=== PATIENT | female | born 1945 | race Caucasian/White ===

== ENCOUNTER 2016-07-20 10:52 | Inpatient (IN) | payer OTHER, MEDICARE ==
[~2016-07-20] VITALS: Ht 170.2 cm; Wt 112.9 kg
[~2016-07-20 10:52] MED LIST: ATIVAN0.5 MG PO; BACTRIM DS TAB1 EACH PO; CARDIZEM CD120 M2 PO; CEPHALEXIN500 M3 PO; CIPROFLOXACIN500 M2 PO; COUMADIN5 M2 PO; DILAUDID2 M1 PO; DILAUDID2 MG PO; DILAUDID8 M1 PO; DILTIAZEM180 MG; FENTANYL1 EAC2 TOP; FERRETTS106 MG PO; FERROUS SULFAT325 M1 PO; HYDROMORPHONE HC4 M1 PO; LASIX20 M1 PO; LASIX40 M1 PO; LEVOTHYROXIN0.075 MG PO; LORAZEPAM0.5 M1 PO; METOPROLOL SUC100 M2 PO; MORPHINE SU4 MG/1 M2 SC; PANTOPRAZOLE SO40 M1 PO; PERCOCET 325 MG1 TA2 PO; PRAVACHOL80 MG; PRAVASTATIN SOD20 M2 PO; PREVACID 30MG30 MG; PROTONIX 40MG T40 MG PO; SYNTHROID0.025 MG; SYNTHROID175 MCG PO; XARELTO15 MG PO
--- NOTE | 2016-07-20 10:57 | NUR ---
PER PT SENT BY DR. DUPREE FOR ADMISSION FOR CELLULITIS. WAS AT [facility] PAIN INTENSE
--- NOTE | 2016-07-20 11:19 | NUR ---
DR. GOMEZ APPROACHED BY THIS RN RE:BLOOD CULTURES D/T WAITTIMES, PER DR GOMEZ CULTURES NOT NECESSARY.
[2016-07-20 11:43] LABS: ABSOLUTE BASOPHIL COUNT 0 /CUMM (0.0-0.2); ABSOLUTE EOSINOPHIL COUNT 0.1 /CUMM (0.0-0.7); ABSOLUTE GRANULOCYTE CT 9.3 /CUMM (1.4-6.5); ABSOLUTE LYMPH COUNT 0.4 /CUMM (1.2-3.4); ABSOLUTE MONOCYTE COUNT 0.1 /CUMM (0.10-0.60); BASOPHIL % 0 % (0.0-2.0); EOSINOPHIL % 0.7 % (0-5); GRANULOCYTE % 94.9 % (42.2-75.2); HEMATOCRIT 45.5 % (37-47); MEAN CORPUSCULAR HGB 29.2 PG (27.0-31.0); MEAN CORPUSCULAR HGB CONC 32.5 G/DL (33.0-37.0); MEAN CORPUSCULAR VOLUME 90.1 FL (81.0-99.0); PLATELET COUNT 160 /CUMM (130-400); RBC DISTRIBUTION WIDTH 14.3 % (11.5-14.5); RED BLOOD CELL CT 5.05 /CUMM (4.20-5.40); WHITE BLOOD CELL COUNT 9.8 /CUMM (4.8-10.8)
[2016-07-20 11:53] LABS: PT 35.2 SEC (9.4-12.5)
--- NOTE | 2016-07-20 12:06 | NUR ---
PER LAB [facility] HEMOLYZED. ANGELA ORTIZ AWARE.
--- NOTE | 2016-07-20 12:24 | ED GENERAL ADULT ---
History of Present Illness General Chief Complaint: Lower Extremity Problems Stated Complaint: SENT BY [facility] FOR INFECTED WOUND Source: patient Exam Limitations: no limitations Vital Signs & Intake/Output Vital Signs & Intake/Output Vital Signs Date Time Temp Pulse Resp B/P B/P Pulse O2 O2 Flow FiO2 Mean Ox Delivery Rate 07/20 1317 95 07/20 1317 98.9 94 22 175/79 95 Room Air 07/20 1058 98.7 110 24 131/77 95 Room Air Allergies Coded Allergies: morphine (VOMITING 07/20/16) Reconcile Medications Ciprofloxacin HCl 500 MG TABLET 1 TAB PO BID Cellulitis DILTIAZEM HCL (Cardizem Cd) 120 MG CAP.ER.24H 1 CAP PO DAILY HEART RATE AND BP (Reported) Fentanyl 25 MCG/HOUR PATCH.TD72 1 PAT TOP Q3D PRN Severe pain Ferrous Sulfate (Iron Supplement) 325 MG TABLET 1 TAB PO DAILY SUPPLEMENT ( Reported) Furosemide (Lasix) 20 MG TABLET 1 TAB PO DAILY Edema Hydromorphone HCl (Dilaudid) 8 MG TABLET 1 TAB PO Q4-6 PRN PRN Severe pain Levothyroxine Sodium (Synthroid) 175 MCG TABLET 1 TAB PO DAILY AC THYROID ( Reported) Lorazepam 0.5 MG TABLET 1 TAB PO BIDP PRN ANXIETY (Reported) Metoprolol Succinate 100 MG TAB.ER.24H 1 TAB PO DAILY HEART/BP (Reported) Morphine Sulfate 4 MG/ML VIAL 4 MG SC SI PRN PAIN PLEASE GIVE 4 MG SC 30 MINUTES BEFORE DRESSING CHANGES, NEEDED FOR SEVERE PAIN. Pantoprazole Sodium 40 MG TABLET.DR 1 TAB PO DAILY GI (Reported) Pravastatin Sodium 20 MG TABLET 1 TAB PO QPM CHOLESTEROL (Reported) Sulfamethoxazole/Trimethoprim (Bactrim Ds Tablet) 800 MG-160 MG TABLET 1 TAB PO BID cellulitis Warfarin Sodium (Coumadin) 4 MG TABLET 1 TAB PO 1700 BLOOD THINNER (Reported) Triage Note: PER PT SENT BY DR. DUPREE FOR ADMISSION FOR CELLULITIS. WAS AT [facility] PAIN INTENSE Triage Nurses Notes Reviewed? yes Onset: Gradual Duration: getting worse Timing: recent history Injury Environment: home Severity: severe Severity Numbers: 8 No Modifying Factors: none HPI: Patient is a 70-year-old female with past medical history of hypertension, hypothyroidism, significant peripheral vascular disease with lower extremity chronic ulcers where she receives wound care, DVT PE currently on Coumadin who presents emergency room stating that today patient was evaluated by her rn clinical documentation specialist Dr. MURILLO for concerns of infection of the right lower leg Patient has been complaining of fevers for the past 2 days. Denies any shortness breath chest pain nausea vomiting hemoptysis (LUCINA KAY) Past History Travel History Traveled to [place] past 21 day No Medical History Any Pertinent Medical History? see below for history Neurological: NONE EENT: NONE Cardiovascular: hypertension, hyperlipidemia Respiratory: pulmonary embolism Gastrointestinal: diverticulitis, GERD, hiatal hernia Hepatic: NONE Renal: NONE Musculoskeletal: rheumatoid arthritis Psychiatric: NONE Endocrine: hypothyroidism, obesity (MORBID) Blood Disorders: DVT, PE Cancer(s): NONE PACKING LINE OPERATOR/Reproductive: NONE Other Medical Hx: see HPI. History of MRSA: Yes History of VRE: No History of CDIFF: No Pneumonia Vaccine: 12/02/14 Surgical History Surgical History: colon resection (SIGMOID WITH END COLOSTOMY ), IVC filter colostomy reversal Psychosocial History Who do you live with Patient/Self Services at Home None What is your primary language Sami Tobacco Use: Never used Family History Family History, If Any: MOTHER FH: diabetes mellitus Hx Contributory? No (LUCINA KAY) Review of Systems Review of Systems Constitutional: Reports: see HPI, fever. EENTM: Reports: no symptoms. Respiratory: Reports: no symptoms. Cardiovascular: Reports: no symptoms. GI: Reports: no symptoms. Genitourinary: Reports: no symptoms. Musculoskeletal: Reports: see HPI. Skin: Reports: see HPI, erythema. Neurological/Psychological: Reports: no symptoms. Hematologic/Endocrine: Reports: no symptoms. Immunologic/Allergic: Reports: no symptoms. All Other Systems: Reviewed and Negative (LUCINA KAY) Physical Exam Physical Exam General Appearance: no apparent distress, obese Comments: HEENT: Normal EENT exam, Neck: Supple, no lymphadenopathy, normal range of motion without pain or tenderness Back: Nontender, no CVA tenderness. Cardiovascular: Regular rate and rhythms no murmurs rubs or gallops, normal JVP Respiratory: Chest nontender. No respiratory distress.breath sounds clear to auscultation bilaterally Abdomen: Soft, nontender nondistended, no appreciable organomegaly. Normal bowel sounds. No ascites Extremity: normal and equal pulses. Neuro: Alert oriented x3, motor sensory normal, Psych: Mood and affect is normal, memory and judgment is normal. Core Measures ACS in differential dx? No CVA/TIA Diagnosis: No Severe Sepsis Present: No Septic Shock Present: No Diagram Body: 1) Noted circumferential erythema warmth and tenderness 2) Noted scattered 5 mm to 2 cm superficial lateral open ulcer (LUCINA KAY) Progress Differential Diagnoses I considered the following diagnoses in my evaluation of the patient: [ Cellulitis, sepsis, MRSA, osteomyelitis, DVT, peripheral vascular disease, arterial insufficiency,] Plan of Care: Orders Procedure Date/time Status LACTIC ACID 07/20 1500 Active Admit to inpatient 07/20 1404 Active TRC EVALUATION (GEN) 07/20 1350 Active OXYGEN SETUP (GEN) 07/20 1350 Active Pathway - chart 07/20 1350 Active House Staff 07/20 1350 Active Patient Data 07/20 1350 Active Patient Data 07/20 1312 Active Add-on Test (ER Only) 07/20 1233 Active EKG 07/20 1233 Active BLOOD CULTURE 07/20 1138 Active TSH REFLEX 07/20 1130 Complete LACTIC ACID 07/20 1130 Complete PROTHROMBIN TIME 07/20 1103 Complete CBC WITHOUT DIFFERENTIAL 07/20 1102 Complete BASIC METABOLIC PANEL 07/20 1102 Complete VTE Mechanical Prophylaxis 07/20 UNK Active Vital Signs 07/20 UNK Active MISTAKE 07/20 UNK Active Intake & Output 07/20 UNK Active Current Medications Sig/Luz Maria Start time Last Medication Dose Stop Time Status Admin Sodium Chloride 1,000 ML BOLUS ONE 07/20 1345 AC 07/20 (Normal Saline 0.9%) 07/20 1444 1402 Laboratory Tests 07/20/16 1237: Anion Gap 14, Estimated GFR 49 L, BUN/Creatinine Ratio 19.1, Glucose 136 H, Lactic Acid 2.9 H, Calcium 8.7, TSH &T3 &Free T4 Intrp 1.390 07/20/16 1130: PT 35.2 H, INR 3.39 H, CBC w Diff MAN DIFF ORDERED, RBC 5.05, MCV 90.1, MCH 29.2, RDW 14.3, MPV 9.0, Gran % 94.9 H, Lymphocytes % 3.7 L, Monocytes % 0.7 L, Eosinophils % 0.7, Basophils % 0 L, Absolute Granulocytes 9.3 H, Segmented Neutrophils 85 H, Band Neutrophils 13 H, Absolute Lymphocytes 0.4 L, Lymphocytes 2 L, Absolute Monocytes 0.1 L, Absolute Eosinophils 0.1, Absolute Basophils 0, Platelet Estimate ADEQUATE, Normocytic RBCs VERIFIED, Normochromic RBCs VERIFIED, PUBS MCHC 32.5 L 07/20/16 1103: TSH &T3 &Free T4 Intrp Cancelled Microbiology 07/20 1237 BLOOD: Blood Culture - RECD 07/20 1135 BLOOD: Blood Culture - RECD Blood cultures currently pending patient will be treated for concerns of cellulitis in the right lower extremity and patient has a positive history of MRSA. No concerns at this time of severe sepsis patient was afebrile tensive Ethan Singh MD also agrees with disposition and plan (LUCINA KAY) Initial ED EKG: SINUS RHYTHM NOTED AT 96 BPM (LUCINA KAY) Departure Departure Disposition: STILL A PATIENT Condition: Stable Clinical Impression Primary Impression: Cellulitis of right leg Secondary Impressions: Bandemia Referrals: SATHISH LAMB MD (PCP/Family) Departure Forms: Customer Survey General Discharge Information Admission Note Spoke With: PREETI YAÑEZ MD Documentation of Exam: Documentation of any treatments & extenuating circumstances including Concerns Regarding Discharge (functional status, medication knowledge or non-compliance, living conditions, etc.) that warrant an admission rather than observation: [ Discussed patient with Dr. YAÑEZ who agrees with general medicine admission for concerns of right lower extremity cellulitis and bandemia. Patient requires IV antibiotics, repeat labs and infectious disease consultation and wound care. Outpatient treatment at this time due to significant and acute expansion of infection would be medically harmful] (LUCINA KAY) PA/COMMERCIAL CREDIT REVIEWER Co-Sign Statement Statement: ED Attending supervision documentation- [X] I saw and evaluated the patient. I have also reviewed all the pertinent lab results and diagnostic results. I agree with the findings and the plan of care as documented in the PA's/COMMERCIAL CREDIT REVIEWER's documentation. [] I have reviewed the ED Record and agree with the PA's/COMMERCIAL CREDIT REVIEWER's documentation. [] Additions or exceptions (if any) to the PAs/COMMERCIAL CREDIT REVIEWER's note and plan are summarized below: [] (JASON FROST,ETHAN Valadez) Critical Care Note Critical Care Note Critical Care Time: 30-74 min (LUCINA KAY)
--- NOTE | 2016-07-20 12:38 | NUR ---
LABS DRAWN AND SENT BY [facility]. UNABLE TO DO EKG AT THIS TIME BECUASE PT ON PHONE AND AWARE OF NEED FOR EKG
--- NOTE | 2016-07-20 12:40 | NUR ---
2ND SET OF CULTURES SENT TO LAB., [facility]
--- NOTE | 2016-07-20 13:00 | NUR ---
2 UNSUCCESSFUL ATTEMPTS FOR IV ACCESS. PT REFUSING TO ALLOW MULTIPLE SITES FOR IV ACCESS, REQUESTING "INFANT SIZE CATHETER."
--- NOTE | 2016-07-20 13:17 | NUR ---
22G IV ESTABLISHED AND PT EDUCATED ON PLAN OF CARE. NICO CARSON AT BEDSIDE FOR INDUSTRIAL ACCOUNTANT
--- NOTE | 2016-07-20 13:42 | NUR ---
CRITICAL TEST RESULTS [id number] VAUGHN SHEETS 70 F TESTS AND RESULTS: LACTIC 2.9 Results received and read back by: ОЛЕГ PRINCE Results received date and time: 07/20/16 1342 The following provider was notified of the results, and read the results back: VINI HYATT Notified date and time: 07/20/16 at 1342
--- NOTE | 2016-07-20 13:43 | History & Physical ---
MARIA DEL CARMEN CUNHA 07/20/16 1342: General Information and HPI MD Statement: I have seen and personally examined VAUGHN SHEETS and documented this H&P. The patient is a 70 year old F who presented with a patient stated chief complaint of right lower leg swelling, redness and fever, chills Source of Information: family, old records Exam Limitations: no limitations History of Present Illness: This is a 70-year-old female with past medical history significant for pulmonary embolism on IVC filter, deep vein thrombosis on Coumadin, tachycardia on Cardizem, GERD, hyperlipidemia, hypertension, hypothyroidism, peripheral vascular disease with lower extremity ulcers following wound care, chronic venous stasis, lower extremity edema, history of cellulitis, anxiety, diabetes mellitus presented to [facility] emergency department from wound care center because of worsening right lower extremity redness, swelling associated with fever and chills for 2 days. She was admitted in [facility] on December 2015 for chronic nonhealing extensive ulcerative wounds on bilateral lower legs and treated for cellulitis. She was discharged from [facility] on 09/01/2015 after being admitted for debridement of bilateral ulcer/wound along with being treated with IV cefazolin for cellulitis. After that she continued to follow with Dr. Erickson at the wound care center 3 times a week, however her chronic ulcers went on worsening, progressively increase in size, were more painful, therefore she was referred to ER for admission by Dr. Erickson himself. She complained of worsening right lower extremity pain which was sharp and nonradiating, associated with redness and swelling. Also reported fever and chills for 2 days. she was at wound care clinic on Saturday for her regular checkup and dressing. Reports oozing wounds on right lower extremities She denies any systemic symptoms like fever, sore throat, congestion, chest pain , racing of heart, difficulty breathing, cough, abdominal pain, nausea, vomiting , diarrhea, no urinary or bowel complaints. She denies any headache, numbness, weakness, sensory changes, gait or vision abnormalities. She denies any smoking. Denies any alcohol intake or illicit drug abuse. Denies any exposure to sick contacts and travel history. Allergies/Medications Allergies: Coded Allergies: morphine (VOMITING 07/20/16) Compliance With Home Meds: GOOD Past History Travel History Traveled to [place] past 21 day No Medical History Neurological: NONE EENT: NONE Cardiovascular: hypertension, hyperlipidemia Respiratory: pulmonary embolism Gastrointestinal: diverticulitis, GERD, hiatal hernia Hepatic: NONE Renal: NONE Musculoskeletal: rheumatoid arthritis Psychiatric: NONE Endocrine: hypothyroidism, obesity (MORBID) Blood Disorders: DVT, PE Cancer(s): NONE FINANCIAL SERVICES DIRECTOR/Reproductive: NONE Other Medical Hx: see HPI. History of MRSA: Yes History of VRE: No History of CDIFF: No Pneumonia Vaccine: 12/02/14 Surgical History Surgical History: colon resection (SIGMOID WITH END COLOSTOMY ), IVC filter colostomy reversal Past Family/Social History Family History Relations & Conditions if any MOTHER FH: diabetes mellitus Psychosocial History Services at Home: None Primary Language: Mohawk Smoking Status: Former Smoker ETOH Use: denies use Illicit Drug Use: denies illicit drug use Living Will? unknown Functional Ability ADLs Independent: dressing, eating, toileting, bathing. Ambulation: cane Review of Systems Review of Systems Constitutional: Reports: chills, fever, malaise, weakness. Denies: unexplained weight loss. EENTM: Denies: see HPI. Cardiovascular: Reports: peripheral edema. Denies: chest pain, edema, orthopena, palpitations, syncope. Respiratory: Denies: cough, hemoptysis, orthopnea, short of breath, sputum production. GI: Denies: abdominal pain, bloating, constipation, melena, nausea, bloody stool. Genitourinary: Denies: discharge, dysuria, frequency. Musculoskeletal: Denies: back pain, gout, joint pain. Skin: Reports: erythema, lesions. Neurological/Psychological: Denies: anxiety, ataxia, depressed, dementia, emotional problems, headache, numbness, tingling, tremors. Exam & Diagnostic Data Last 24 Hrs of Vital Signs/I&O Vital Signs Date Time Temp Pulse Resp B/P B/P Pulse O2 O2 Flow FiO2 Mean Ox Delivery Rate 07/20 1538 99.9 112 22 140/63 95 Room Air 07/20 1317 95 07/20 1317 98.9 94 22 175/79 95 Room Air 07/20 1058 98.7 110 24 131/77 95 Room Air Intake & Output 07/20 1600 07/20 0800 07/20 0000 Intake Total 1350 Output Total Balance 1350 Intake, IV 1350 Patient 99.79 kg Weight Physical Exam General Appearance Alert, Oriented X3, Cooperative, No Acute Distress Skin No Rashes, No Breakdown HEENT Atraumatic, PERRLA, EOMI, Mucous Membr. moist/pink Neck Supple, No JVD, No thryomegaly Lymphatic Cervical nl Cardiovascular Normal S1, Normal S2, No Murmurs Lungs Normal Air Movement Abdomen Normal Bowel Sounds, Soft, No Tenderness, No Hepatospenomegaly Extremities No Clubbing, No Cyanosis, right lower leg redness, swelling and oozing wounds Vascular Normal Pulses, Pulses Symmetrical Last 24 Hrs of Labs/Dany: Laboratory Tests 07/20/16 1543: Lactic Acid 2.8 H 07/20/16 1532: Urine Color YEL, Urine Clarity CLEAR, Urine pH 7.5, Ur Specific [place] 1.020, Urine Protein >=300 H, Urine Ketones NEG, Urine Nitrite POS H, Urine Bilirubin NEG, Urine Urobilinogen 2.0 H, Ur Leukocyte Esterase NEG, Ur Microscopic SEDIMENT EXAMINED, Urine RBC 5-10 H, Urine WBC 15-25 H, Ur Epithelial Cells FEW, Urine Bacteria PACKD H, Urine Hemoglobin MOD H, Urine Glucose NEG 07/20/16 1237: Anion Gap 14, Estimated GFR 49 L, BUN/Creatinine Ratio 19.1, Glucose 136 H, Lactic Acid 2.9 H, Calcium 8.7, TSH &T3 &Free T4 Intrp 1.390 07/20/16 1130: PT 35.2 H, INR 3.39 H, CBC w Diff MAN DIFF ORDERED, RBC 5.05, MCV 90.1, MCH 29.2, RDW 14.3, MPV 9.0, Gran % 94.9 H, Lymphocytes % 3.7 L, Monocytes % 0.7 L, Eosinophils % 0.7, Basophils % 0 L, Absolute Granulocytes 9.3 H, Segmented Neutrophils 85 H, Band Neutrophils 13 H, Absolute Lymphocytes 0.4 L, Lymphocytes 2 L, Absolute Monocytes 0.1 L, Absolute Eosinophils 0.1, Absolute Basophils 0, Platelet Estimate ADEQUATE, Normocytic RBCs VERIFIED, Normochromic RBCs VERIFIED, PUBS MCHC 32.5 L 07/20/16 1103: TSH &T3 &Free T4 Intrp Cancelled Microbiology 07/20 1237 BLOOD: Blood Culture - RECD 07/20 1135 BLOOD: Blood Culture - RECD Assessment/Plan Assessment: This is a 70-year-old female with past medical history significant for pulmonary embolism on IVC filter, deep vein thrombosis on Coumadin, tachycardia on Cardizem, GERD, hyperlipidemia, hypertension, hypothyroidism, peripheral vascular disease with lower extremity ulcers following wound care, chronic venous stasis, lower extremity edema, history of cellulitis, anxiety, diabetes mellitus presented to [facility] emergency department from wound care center because of worsening right lower extremity redness, swelling associated with fever and chills for 2 days. Vitals on admission-afebrile, heart rate 110, respiratory rate 24, blood pressure 130/77, saturating at 95 on room air. Labs on admission wbc 9.8 with 13 bands, hemoglobin 14, hematocrit 45, platelets 160. INR 3.39 Bun 21 and creatinine 1.1. She received IV vancomycin and ceftaz in the emergency room and normal saline. Problem list 1. Sepsis secondary to right lower extremity cellulitis 2. Deep vein thrombosis and pulmonary embolism on Coumadin 3. Hypertension 4. Diabetes mellitus 5. GERD 6. Hyperlipidemia 7. Hypothyroidism 8. Chronic venous stasis 9. Lower extremity edema 1. Sepsis secondary to right lower extremity cellulitis Patient presented from wound care center with worsening right lower extremity pain, swelling, redness associated with fever and chills. She usually follows up get DrSoila 3 times a week. She was told to go to ER for possible cellulitis. On admission she was tachycardic with 13 bands. The source of sepsis might be right lower extremity. * Admitted to general medicine floor for further management of right lower extremity cellulitis * Monitor vitals closely every shift * Monitor for fever, leukocytosis, worsening redness, swelling, pain * She was given IV antibiotics ceftaz and vancomycin in the emergency room * We will continue IV antibiotics ceftaz and vancomycin for cellulitis with broad coverage * ID was consulted * Will follow ID recommendations * Follow-up CBCs in the morning * IV hydration with normal saline * Lactic acid elevated on admission 2.9 * Will provide hydration and trend down lactic acid * Follow blood cultures 2. Bilateral lower extremity leg edema * Patient takes by mouth 40 mg Lasix at home. * Last echo 05/19/2014 which showed normal left ventricular ejection fraction, proximal thickening of the septum, mild left outflow obstruction, hyperdynamic left ventricular function with normal ventricular size and small cavity. Left ventricular wall thickness mildly increased. * We will hold the Lasix for now as she is septic and on IV fluids 3. Pulmonary embolism * Status post IVC filter placement 4. Deep vein thrombosis * On Coumadin 4 mg daily 5. Supratherapeutic INR INR 3.39 on admission. She takes Coumadin 4 mg daily for DVT and pulmonary embolism. She didn't take her medication today * Hold Coumadin today * Get INR in the morning * Dose Coumadin accordingly 6. Tachycardia She takes Cardizem at home * Continue Cardizem for now, heart rate 110 on admission with no new EKG changes 7. Heartburn/GERD Takes pantoprazole at home * Continue omeprazole for now 8. Hyperlipidemia Continue pravastatin 9. History of hypertension Continue home dose of metoprolol daily 10. Hypothyroidism Continue home dose of Synthyroid 175 g 11. Chronic venous stasis ulcers History of peripheral vascular disease with lower extremity ulcers Chronic venous stasis ulcers FOLLOWS Dr. Metzger at wound care center 3 times in a week * Consider wound care consult 12. Diabetes mellitus Patient is on metformin at home * We'll hold metformin in the hospital * Accu-Cheks before meals and at bedtimes * Insulin low-dose sliding scale DVT prophylaxis-Coumadin Regular diet Full code Pain pathway As Ranked By This Provider Problem List: 1. DVT (deep venous thrombosis) 2. PE (pulmonary thromboembolism) 3. Cellulitis of right leg Core Measures/Miscellaneous Acute Coronary Syndrome ACS Diagnosis: No Cerebrovascular Accident CVA/TIA Diagnosis: No Congestive Heart Failure CHF Diagnosis: No Venous Thromboembolism VTE Risk Factors: Age > [address] [facility] VTE prophylaxis d/t: No contraindications No VTE Pharm Prophylaxis d/t: No contraindications VTE Diagnosis: No VTE Type: NONE VTE Confirmed by (Test): NONE Severe Sepsis Severe Sepsis Present: No Septic Shock Septic Shock Present: No Miscellaneous Documentation Attending Case Discussed With: NEDA WALTON MD Primary Care Physician: SATHISH LAMB MD Patient sees these Specialists wound care Level of Patient Care: General Medicine JD ESPINOZA 07/20/16 1343: General Information and HPI Allergies/Medications Home Med list Diltiazem HCl (Cardizem Cd) 120 MG CAP.ER.24H 1 CAP PO DAILY HEART (Reported) Ferrous Fumarate (Ferretts) 325 MG (106 MG) TABLET 1 TAB PO DAILY SUPPLEMENT (Reported) Furosemide 40 MG TABLET 1 TAB PO DAILY WATER PILL (Reported) Levothyroxine Sodium (Synthroid) 175 MCG TABLET 1 TAB PO DAILY AC THYROID ( Reported) Metformin HCl 500 MG TABLET 1 TAB PO BID UNKNOWN (Reported) Metoprolol Succinate 100 MG TAB.ER.24H 1 TAB PO DAILY HEART/BP (Reported) Oxycodone HCl/Acetaminophen (Percocet 7.5-325 MG Tablet) 7.5 MG-325 MG TABLET 1 TAB PO TID PRN PAIN (Reported) Pantoprazole Sodium 40 MG TABLET.DR 1 TAB PO DAILY GI (Reported) Pravastatin Sodium 20 MG TABLET 1 TAB PO QPM CHOLESTEROL (Reported) Warfarin Sodium (Coumadin) 5 MG TABLET 1 TAB PO 1700 BLOOD THINNER (Reported) Resident Review Statement Resident Statement: examined this patient, discussed with product marketing intern, agreed with product marketing intern Other Findings: This is a 70 YO lady w/ PMH of f DVT/PE on warfarin also status post IVC filter, venous stasis ulcer, hypertension, hyperlipidemia who was referred to [place] ED from wound care center for evaluation of RLE ulcers. On admission Max temp 100.2, VS otherwise stable. RLE erythema starting from ankle up to her thigh(area marked), warm and tender to touch, ulcers noted on anterior tibial aspect of RLE. Chronic venous stasis changes noted on both LEs. Labs significant for bandemia(13), elevated lactic acid to 2.9. elevated creatinine to 1.1. INR 3.39. Received IV vanco and Ceftaz in the ED. Assessment: -Sepsis 2/2 RLE cellulitis -DVT on warfarin w/supratherapeutic INR -H/o Chronic LE static ulcers -Hyperlipidemia: chronic/stable -HTN: chronic/stable -Elevated creatinine Plan: * GM admit * Hold warfarin tonight; check INR tomorrow morning * Broad AB coverage with IV vanco and ceftaz * ID consult * Gentle IV hydration;will hold lasix for 24 hr * c/w DIRECT MAIL MARKETER metoprolol, diltiazem, levothyroxine, statins, PPIs * Wound care MX * Will hold DIRECT MAIL MARKETER metformin;accucheks and Ins SS while admitted. * DVT PPX : Pt is on warfarin * Pt is full code. NEDA WALTON 07/20/16 1348: Attending Review Statement Attending Statement Attending MD Statement: examined this patient, discuss w/resident/PA/AREA OPERATIONS MANAGER, agreed w/resident/PA/AREA OPERATIONS MANAGER, discussed with family, reviewed EMR data (avail), discussed with nursing, discussed with case mgmt, reviewed images, amended to note Attending Assessment/Plan: 70 yo female with h/o HTN, HL, DVT/PE- IVC filter & on chronic Coumadin, hypothyroid, obesity and RA who presented in the [place] ED after being referred from wound care center (Dr. Barrett) with bilateral lower extremity venous stasis ulcerations and possible cellulitis. She has some chronic edema that she is taking lasix. Impression/Plan: #Cellulitis #Severe Lower Extremity Pain. #Bilateral Lower Extremity Stasis Ulcerations #Coagulopathy INR supratherapeutic #Essential HTN #Hyperlipidemia. #Hypothyroid. #GERD. #H/O DVT/PE #SIRS PLAN admit to inpatient medical services Trend LA, gentle hydration. Abx for broad spectrum coverage, blood culture x 2 sets. Continue home meds- Metoprolol/Diltiazem/levothyroxine pain control , hold coumadin , monitor INR, has IVC filter consult wound care/ID. gi/dvt prophylaxis full code.
[2016-07-20] MEDS ORDERED: METFORMIN HCL500 M3 PO (14:11)
[2016-07-20] MEDS ORDERED: PERCOCET 7.5-31 EACH PO (14:12)
[2016-07-20] MEDS ORDERED: FUROSEMIDE40 M1 PO (14:13)
--- NOTE | 2016-07-20 14:26 | NUR ---
PT C/O PAIN. HOUSE STAFF PAGED, MEDICATED WITH PERCOCET AND EXPLAINED THAT ORDER IS Q6H PRN. VERBALIZED UNDERSTANDING.
--- NOTE | 2016-07-20 14:34 | NUR ---
HOUSE STAFF AT BEDSIDE
--- NOTE | 2016-07-20 14:48 | NUR ---
FOOD TRAY ORDERED
--- NOTE | 2016-07-20 15:30 | NUR ---
PT TO ROOM 224 BED 2
--- NOTE | 2016-07-20 15:35 | NUR ---
URINE TRIO SENT
--- NOTE | 2016-07-20 15:44 | NUR ---
REPEAT LACTIC DRAWN AND SENT. VANCO HELD AT THIS TIME DUE TO REPEAT ORDER, PT JUST RECEIVED VANCO
--- NOTE | 2016-07-20 16:35 | NUR ---
CRITICAL TEST RESULTS [id number] VAUGHN SHEETS 70 F TESTS AND RESULTS: LACTIC 2.8 Results received and read back by: SP VALVERDE Results received date and time: 07/20/16 2315 The following provider was notified of the results, and read the results back: PAGED Notified date and time: 07/20/16 at [id number]
--- NOTE | 2016-07-20 16:35 | NUR ---
REPORT GIVEN TO RECEIVING RN, AWAITING UPDATE ON BED CHANGE DUE TO MRSA CONTACT PRECAUTIONS
--- NOTE | 2016-07-20 17:11 | NUR ---
PT UPDATED ON ROOM ASSIGNEMTN CHANGE. TRANSPORT BOOKED
--- NOTE | 2016-07-20 17:12 | NUR ---
REPEAT TEMP 100.2 AND PT REQUESTING SOMETHING FOR HEADACHE. HOUSE STAFF PAGED AT [phone]
--- NOTE | 2016-07-20 17:18 | NUR ---
PT MEDICATED WITH TYLENOL FOR TEMP AND HEADACHE. RECEIVING RN NOTIFIED AND AWARE THAT PT WILL NEED DAILY MEDS NOT AVAILABLE IN ED
--- NOTE | 2016-07-20 17:30 | NUR ---
PT ADMITTED TO ROOM 226-01 FROM THE ER VIA STRETCHER, PT AMBULATED TO BED WITH CANE ASSIST X1, PT A/OX3, ON RA, PT C/O NO PAIN AT THIS TIME, PT RLE RED AND WARM TO THE TOUCH, MULTIPLE OPEN WOUNDS NOTED TO BLE PWCE, ORIENTED TO ROOM AND CALL GOMEZ, BED IN LOWEST POSITION AND LOCKED, WILL CONT TO MONITOR
[2016-07-20 17:52] VITALS: BP 164/74
--- NOTE | 2016-07-20 19:45 | Cons- Infect Disease ---
General Information and HPI Consulting Request Date of Consult: 07/20/16 Requested By: NEDA WALTON MD Reason for Consult: Right leg cellulitis Source of Information: patient, old records History of Present Illness: This is a 70-year-old woman with a history of rheumatoid arthritis, pulmonary embolism and DVT, maintained on Coumadin, chronic venous stasis ulcers, requiring debridement in the past, most recently 7 months prior to admission, treated with compressive dressings since that time, admitted today after she presented to the emergency room with a 2 day history of fevers and chills and more acute onset of pain and erythema of the right leg, from the ankle up to the thigh. On admission she was febrile to 100.2. Laboratory data revealed a white blood cell count of 10,000, BUN/creatinine 21 and 1.1, lactic acid 2.9, INR 3.39. Urinalysis 5-10 RBC/15-25 WBCs. She was begun on Vancomycin and Ceftazidime. Allergies/Medications Allergies: Coded Allergies: morphine (VOMITING 07/20/16) Home Med List: Diltiazem HCl (Cardizem Cd) 120 MG CAP.ER.24H 1 CAP PO DAILY HEART (Reported) Ferrous Fumarate (Ferretts) 325 MG (106 MG) TABLET 1 TAB PO DAILY SUPPLEMENT (Reported) Furosemide 40 MG TABLET 1 TAB PO DAILY WATER PILL (Reported) Levothyroxine Sodium (Synthroid) 175 MCG TABLET 1 TAB PO DAILY AC THYROID ( Reported) Metformin HCl 500 MG TABLET 1 TAB PO BID UNKNOWN (Reported) Metoprolol Succinate 100 MG TAB.ER.24H 1 TAB PO DAILY HEART/BP (Reported) Oxycodone HCl/Acetaminophen (Percocet 7.5-325 MG Tablet) 7.5 MG-325 MG TABLET 1 TAB PO TID PRN PAIN (Reported) Pantoprazole Sodium 40 MG TABLET.DR 1 TAB PO DAILY GI (Reported) Pravastatin Sodium 20 MG TABLET 1 TAB PO QPM CHOLESTEROL (Reported) Warfarin Sodium (Coumadin) 5 MG TABLET 1 TAB PO 1700 BLOOD THINNER (Reported) Past History Travel History Traveled to [place] past 21 day No Medical History Blood Transfusion Hx: Yes Neurological: NONE EENT: NONE Cardiovascular: hypertension, hyperlipidemia Respiratory: pulmonary embolism Gastrointestinal: diverticulitis, GERD, hiatal hernia Hepatic: NONE Renal: NONE Musculoskeletal: rheumatoid arthritis Psychiatric: NONE Endocrine: hypothyroidism, obesity (MORBID) Blood Disorders: DVT, PE Cancer(s): NONE FACULTY RESEARCH ASSISTANT/Reproductive: NONE Other Medical Hx: see HPI. History of MRSA: Yes History of VRE: No History of CDIFF: No Isolation History: Contact Pneumonia Vaccine: 12/02/14 Surgical History Surgical History: colon resection (SIGMOID WITH END COLOSTOMY ), IVC filter colostomy reversal Family History Relations & Conditions If Any: MOTHER FH: diabetes mellitus Psychosocial History Where Do You Live? Home Services at Home: None Primary Language: Irish Smoking Status: Former Smoker ETOH Use: denies use Illicit Drug Use: denies illicit drug use Living Will? unknown Functional Ability ADLs Independent: dressing, eating, toileting, bathing. Ambulation: cane Review of Systems Review of Systems Cardiovascular: Denies: chest pain. Respiratory: Reports: short of breath (this am). Denies: cough. GI: Reports: diarrhea. Denies: abdominal pain, nausea, vomiting. Genitourinary: Reports: no symptoms. All Other Systems: Reviewed and Negative Exam & Diagnostic Data Last 24 Hrs of Vital Signs/I&O Vital Signs Date Time Temp Pulse Resp B/P B/P Pulse O2 O2 Flow FiO2 Mean Ox Delivery Rate 07/20 1858 106 160/70 07/20 1808 99.3 07/20 1752 99.3 109 18 164/74 94 Room Air 07/20 1730 Room Air 07/20 1717 100.2 07/20 1711 100.2 07/20 1538 99.9 112 22 140/63 95 Room Air 07/20 1317 95 07/20 1317 98.9 94 22 175/79 95 Room Air 07/20 1058 98.7 110 24 131/77 95 Room Air Intake & Output 07/20 1600 07/20 0800 07/20 0000 Intake Total 1350 Output Total Balance 1350 Intake, IV 1350 Patient 220 lb Weight Physical Exam Other Physical Findings: She is awake and alert in no acute distress. MAXIMUM TEMPERATURE 100.2. Skin reveals no rash. HEENT exam is negative. Neck is supple with no adenopathy. Lungs are clear. Heart regular rhythm with a 2/6 systolic ejection murmur. Abdomen is obese, soft, nontender with positive bowel sounds. Back no CVA tenderness. Extremities chronic venous stasis changes to the left leg; right leg with superficial ulcerations over the anterior tibial aspect, with diffuse erythema from the ankle extending to the mid thigh, mildly tender to palpation. Neuro is without focality. Last 24 Hours of Lab Results: Laboratory Tests 07/20 07/20 1543 1532 Chemistry Lactic Acid (0.7 - 2.1 mmol/L) 2.8 H Urines Urine Color (YEL,AMB,STR) YEL Urine Clarity (CLEAR) CLEAR Urine pH (5.0 - 8.0) 7.5 Ur Specific [place] (1.001 - 1.035) 1.020 Urine Protein (NEG,<30 MG/DL) >=300 H Urine Ketones (NEG) NEG Urine Nitrite (NEG) POS H Urine Bilirubin (NEG) NEG Urine Urobilinogen (0.1 - 1.0 EU/dl) 2.0 H Ur Leukocyte Esterase (NEG) NEG Ur Microscopic SEDIMENT EXAMINED Urine RBC (0 - 5 /HPF) 5-10 H Urine WBC (0 - 2 /HPF) 15-25 H Ur Epithelial Cells (NONE,FEW) FEW Urine Bacteria (NEG/NONE) PACKD H Urine Hemoglobin (NEG) MOD H Urine Glucose (N MG/DL) NEG 07/20 07/20 1237 1130 Chemistry Sodium (137 - 145 mmol/L) 138 Potassium (3.5 - 5.1 mmol/L) 4.0 Chloride (98 - 107 mmol/L) 99 Carbon Dioxide (22 - 30 mmol/L) 24 Anion Gap (5 - 16) 14 BUN (7 - 17 mg/dL) 21 H Creatinine (0.5 - 1.0 mg/dL) 1.1 H Estimated GFR (>60 ml/min) 49 L BUN/Creatinine Ratio (7 - 25 %) 19.1 Glucose (65 - 99 mg/dL) 136 H Lactic Acid (0.7 - 2.1 mmol/L) 2.9 H Calcium (8.4 - 10.2 mg/dL) 8.7 TSH &T3 &Free T4 Intrp (0.270 - 4.20 uIU/mL) 1.390 Coagulation PT (9.4 - 12.5 SEC) 35.2 H INR (0.90 - 1.19) 3.39 H Hematology CBC w Diff MAN DIFF ORDERED WBC (4.8 - 10.8 /CUMM) 9.8 RBC (4.20 - 5.40 /CUMM) 5.05 Hgb (12.0 - 16.0 G/DL) 14.8 Hct (37 - 47 %) 45.5 MCV (81.0 - 99.0 FL) 90.1 MCH (27.0 - 31.0 PG) 29.2 RDW (11.5 - 14.5 %) 14.3 Plt Count (130 - 400 /CUMM) 160 MPV (7.4 - 10.4 FL) 9.0 Gran % (42.2 - 75.2 %) 94.9 H Lymphocytes % (20.5 - 51.1 %) 3.7 L Monocytes % (1.7 - 9.3 %) 0.7 L Eosinophils % (0 - 5 %) 0.7 Basophils % (0.0 - 2.0 %) 0 L Absolute Granulocytes (1.4 - 6.5 /CUMM) 9.3 H Segmented Neutrophils (42.2 - 75.2 %) 85 H Band Neutrophils (0.0 - 5.0 %) 13 H Absolute Lymphocytes (1.2 - 3.4 /CUMM) 0.4 L Lymphocytes (20.5 - 51.1 %) 2 L Absolute Monocytes (0.10 - 0.60 /CUMM) 0.1 L Absolute Eosinophils (0.0 - 0.7 /CUMM) 0.1 Absolute Basophils (0.0 - 0.2 /CUMM) 0 Platelet Estimate (ADEQUATE) ADEQUATE Normocytic RBCs VERIFIED Normochromic RBCs VERIFIED PUBS MCHC (33.0 - 37.0 G/DL) 32.5 L 07/20 1103 Chemistry TSH &T3 &Free T4 Intrp Cancelled Last 24 Hours of Dany Results: Blood cultures July 20 pending Assessment/Plan Assessment/Plan Impression: This is a 70-year-old woman with a history of pulmonary embolism/DVT, maintained on Coumadin, chronic venous stasis ulcers, admitted today with a 2 day history of fevers and chills and more acute onset of pain and erythema of the right lower extremity and found to have a low-grade fever with a normal white blood cell count. She appears to have a cellulitis of the right leg. Superficial cultures of her ulcers in the past have grown multiple organisms, but suspect that her cellulitis is most likely secondary to a beta-hemolytic strep, and her antibiotics can be adjusted to primarily cover this group of organisms. Suggestion: 1. Elevation of the right leg 2. Discontinue Vancomycin and Ceftazidime 3. Begin Cefazolin 2 g IV every 8 hours Consult Acknowledgment - Thank you for your consult request.
[2016-07-20 22:28] VITALS: BP 124/84
--- NOTE | 2016-07-21 05:19 | PN- Housestaff ---
See Addendum Subjective Follow-up For: RLE cellulitis Subjective: Pt seen and examined. Offers no complaints. Denies chest pain, shortness of breath, nausea, vomiting, dizziness, lightheadedness, abdominal pain. AB was changed to IV cefazolin per ID recs. VSS, no events reported. Review of Systems Constitutional: Reports: no symptoms. Objective Last 24 Hrs of Vital Signs/I&O Vital Signs Date Time Temp Pulse Resp B/P B/P Pulse O2 O2 Flow FiO2 Mean Ox Delivery Rate 07/21 0000 Room Air 07/20 2228 98.3 80 20 124/84 93 Room Air 07/20 1858 106 160/70 07/20 1808 99.3 07/20 1752 99.3 109 18 164/74 94 Room Air 07/20 1730 Room Air 07/20 171 100.2 07/20 1711 100.2 07/20 1538 99.9 112 22 140/63 95 Room Air 07/20 1317 95 07/20 1317 98.9 94 22 175/79 95 Room Air 07/20 1058 98.7 110 24 131/77 95 Room Air Intake & Output 07/21 0800 07/21 0000 07/20 1600 Intake Total 600 1350 Output Total 600 Balance 0 1350 Intake, IV 300 1350 Intake, Oral 300 Number 1 Bowel Movements Output, Urine 600 Patient 250 lb 220 lb Weight Weight Reported by Patient Measurement Method Physical Exam General Appearance: Alert Skin: Size of erythema unchanged from admission ph/ex. area is marked. Dressing on ulcers Skin Temp/Moisture Exam: Warm/Dry Sepsis Skin Exam (color): Normal for Ethnicity HEENT: Atraumatic Neck: Supple Cardiovascular: Regular Rate, No Murmurs Lungs: Clear to Auscultation Abdomen: Normal Bowel Sounds, Soft, No Tenderness Neurological: Normal Speech Extremities: See skin exam Vascular: Pulses Symmetrical Current Medications: Current Medications Sig/Luz Maria Start time Last Medication Dose Route Stop Time Status Admin Acetaminophen 0 .STK-MED ONE 07/20 1718 DC PO Acetaminophen 325 MG Q6P PRN 07/20 1714 AC 07/20 PO 1717 Cefazolin Sodium 2 GM Q8 07/21 0600 AC 07/21 N/A 1 UNIT IV 0604 Cefazolin Sodium 2 GM IQ8 07/20 2000 DC 07/20 N/A 1 UNIT IV 2213 Ceftazidime 1,000 MG Q12 07/20 2200 CAN IV Ceftazidime 0 .STK-MED ONE 07/20 1311 DC .ROUTE Ceftazidime 1,000 MG ONCE ONE 07/20 1245 DC 07/20 IV 07/20 1246 1317 Diltiazem HCl 120 MG DAILY 07/20 1532 AC 07/20 PO 1858 Insulin Aspart 0 TIDAC 07/20 1700 AC 07/20 SC 1813 Levothyroxine Sodium 0.175 MG DAILY AC 07/20 1532 AC 07/21 PO 0604 Metoprolol Succinate 100 MG DAILY 07/20 1532 AC 07/20 PO 1858 Omeprazole 40 MG DAILY AC 07/20 1533 AC 07/21 PO 0604 Oxycodone/ 1 TAB Q4-PRN PRN 07/20 2045 07/21 Acetaminophen PO 0132 Oxycodone/ 1 TAB Q6P PRN 07/20 1430 DC 07/20 Acetaminophen PO 1426 Oxycodone/ 1 TAB Q6P PRN 07/20 1430 DC 07/20 Acetaminophen PO 2015 Oxycodone/ 0 .STK-MED ONE 07/20 1428 DC Acetaminophen PO Pravastatin Sodium 20 MG QPM 07/20 2200 AC 07/20 PO 2015 Sodium Chloride 1,000 ML Q13H 07/20 1530 AC 07/21 IV 0604 Sodium Chloride 1,000 ML BOLUS ONE 07/20 1345 DC 07/20 IV 07/20 1444 1402 Vancomycin HCl 1,250 MG Q24H 07/21 1300 CAN Sodium Chloride 250 ML IV Vancomycin HCl 1,000 MG DAILY 07/20 1524 DC Sodium Chloride 250 ML IV Vancomycin HCl 0 .STK-MED ONE 07/20 1311 DC .ROUTE Vancomycin HCl 1,000 MG ONCE ONE 07/20 1245 DC 07/20 Sodium Chloride 250 ML IV 07/20 1344 1329 Last 24 Hrs of Lab/Dany Results Last 24 Hrs of Labs/Mics: Laboratory Tests 07/21/16 0115: Lactic Acid 1.4 07/20/16 2210: Lactic Acid 1.4 07/20/16 1543: Lactic Acid 2.8 H 07/20/16 1532: Urine Color YEL, Urine Clarity CLEAR, Urine pH 7.5, Ur Specific [place] 1.020, Urine Protein >=300 H, Urine Ketones NEG, Urine Nitrite POS H, Urine Bilirubin NEG, Urine Urobilinogen 2.0 H, Ur Leukocyte Esterase NEG, Ur Microscopic SEDIMENT EXAMINED, Urine RBC 5-10 H, Urine WBC 15-25 H, Ur Epithelial Cells FEW, Urine Bacteria PACKD H, Urine Hemoglobin MOD H, Urine Glucose NEG 07/20/16 1237: Anion Gap 14, Estimated GFR 49 L, BUN/Creatinine Ratio 19.1, Glucose 136 H, Lactic Acid 2.9 H, Calcium 8.7, TSH &T3 &Free T4 Intrp 1.390 07/20/16 1130: PT 35.2 H, INR 3.39 H, CBC w Diff MAN DIFF ORDERED, RBC 5.05, MCV 90.1, MCH 29.2, RDW 14.3, MPV 9.0, Gran % 94.9 H, Lymphocytes % 3.7 L, Monocytes % 0.7 L, Eosinophils % 0.7, Basophils % 0 L, Absolute Granulocytes 9.3 H, Segmented Neutrophils 85 H, Band Neutrophils 13 H, Absolute Lymphocytes 0.4 L, Lymphocytes 2 L, Absolute Monocytes 0.1 L, Absolute Eosinophils 0.1, Absolute Basophils 0, Platelet Estimate ADEQUATE, Normocytic RBCs VERIFIED, Normochromic RBCs VERIFIED, PUBS MCHC 32.5 L 07/20/16 1103: TSH &T3 &Free T4 Intrp Cancelled Microbiology 07/20 1237 BLOOD: Blood Culture - RECD 07/20 1135 BLOOD: Blood Culture - RECD Assessment/Plan Assessment: This is a 70 YO lady w/ 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 On admission Max temp 100.2, VS otherwise stable. RLE erythema starting from ankle up to her thigh(area marked), warm and tender to touch, ulcers noted on anterior tibial aspect of RLE. Chronic venous stasis changes noted on both LEs. Labs significant for bandemia(13), elevated lactic acid to 2.9. elevated creatinine to 1.1. INR 3.39. Assessment: -Sepsis 2/2 RLE cellulitis -DVT on warfarin w/supratherapeutic INR -H/o Chronic LE static ulcers -Hyperlipidemia: chronic/stable -HTN: chronic/stable -Elevated creatinine Plan: * INR pending; adjust warfarin based on INR * c/w IV cefazolin * Follow ID recs * Received gentle IV hydration. Creatinine level pending. * Decide when to restart and dose of Lasix based on creatinine trend. * c/w RN ELIGIBILITY metoprolol, diltiazem, levothyroxine, statins, PPIs * Wound care MX * Continue with accucheks and Ins SS while admitted. * DVT PPX : Pt is on warfarin * Pt is full code. Problem List: 1. Ulcers of both lower extremities 2. Cellulitis of right leg Pain Ratin Pain Location: RLE Pain Goal: Pain 4 or less Pain Plan: PRN percocet Tomorrow's Labs & Rationales: INR : Patient is on warfarin BEP : To monitor creatinine level
[2016-07-21 06:30] VITALS: BP 132/74
[2016-07-21 08:18] LABS: PT 30.2 SEC (9.4-12.5)
[2016-07-21 08:46] LABS: ABSOLUTE BASOPHIL COUNT 0 /CUMM (0.0-0.2); ABSOLUTE EOSINOPHIL COUNT 0.1 /CUMM (0.0-0.7); ABSOLUTE GRANULOCYTE CT 7.6 /CUMM (1.4-6.5); ABSOLUTE LYMPH COUNT 0.5 /CUMM (1.2-3.4); ABSOLUTE MONOCYTE COUNT 0.4 /CUMM (0.10-0.60); BASOPHIL % 0.1 % (0.0-2.0); EOSINOPHIL % 1.7 % (0-5); GRANULOCYTE % 87.6 % (42.2-75.2); MEAN CORPUSCULAR HGB CONC 32.8 G/DL (33.0-37.0); MEAN CORPUSCULAR VOLUME 88.4 FL (81.0-99.0); MEAN PLATELET VOLUME 9.2 FL (7.4-10.4); PLATELET COUNT 176 /CUMM (130-400); RBC DISTRIBUTION WIDTH 14.3 % (11.5-14.5); RED BLOOD CELL CT 4.38 /CUMM (4.20-5.40); WHITE BLOOD CELL COUNT 8.7 /CUMM (4.8-10.8)
[2016-07-21 09:13] LABS: HEMATOCRIT 38.8 % (37-47)
[2016-07-21 14:00] VITALS: BP 138/74
--- NOTE | 2016-07-21 14:20 | PN- Infect Dx ---
Subjective Subjective: MAXIMUM TEMPERATURE 100.2. She still complains of pain in the right leg. She also notes irritation in the folds of her groin. Objective Last 24 Hrs of Vital Signs/I&O Vital Signs Date Time Temp Pulse Resp B/P B/P Pulse O2 O2 Flow FiO2 Mean Ox Delivery Rate 07/21 1037 Room Air Room Air 07/21 0944 80 124/74 07/21 0630 99.9 85 20 132/74 95 Room Air 07/21 0000 Room Air 07/20 2228 98.3 80 20 124/84 93 Room Air 07/20 1858 106 160/70 07/20 1808 99.3 07/20 1752 99.3 109 18 164/74 94 Room Air 07/20 1730 Room Air 07/20 1717 100.2 07/20 1711 100.2 07/20 1538 99.9 112 22 140/63 95 Room Air Intake & Output 07/21 1600 07/21 0800 07/21 0000 Intake Total 800 600 Output Total 1250 600 Balance -450 0 Intake, IV 600 300 Intake, Oral 200 300 Number 1 1 Bowel Movements Output, Urine 1250 600 Patient 250 lb Weight Weight Reported by Patient Measurement Method Physical Exam Other Physical Findings: She appears comfortable in no acute distress Skin candidal rash in the intertriginous regions of her groin Lungs are clear Heart regular rhythm with no murmur Extremities right leg erythema persists, extending to the thigh, without significant change from yesterday, tender to palpation Results Last 24 Hours of Lab Results: Laboratory Tests 07/21 07/21 07/20 07/20 0720 0115 2210 1543 Chemistry Sodium (137 - 145 mmol/L) 136 L Potassium (3.5 - 5.1 mmol/L) 4.1 Chloride (98 - 107 mmol/L) 103 Carbon Dioxide (22 - 30 mmol/L) 25 Anion Gap (5 - 16) 7 BUN (7 - 17 mg/dL) 16 Creatinine (0.5 - 1.0 mg/dL) 1.0 Estimated GFR (>60 ml/min) 55 L BUN/Creatinine Ratio (7 - 25 %) 16.0 Lactic Acid (0.7 - 2.1 mmol/L) 1.4 1.4 2.8 H Coagulation PT (9.4 - 12.5 SEC) 30.2 H INR (0.90 - 1.19) 2.91 H Hematology CBC w Diff MAN DIFF ORDERED WBC (4.8 - 10.8 /CUMM) 8.7 RBC (4.20 - 5.40 /CUMM) 4.38 Hgb (12.0 - 16.0 G/DL) 12.7 Hct (37 - 47 %) 38.8 MCV (81.0 - 99.0 FL) 88.4 MCH (27.0 - 31.0 PG) 29.0 RDW (11.5 - 14.5 %) 14.3 Plt Count (130 - 400 /CUMM) 176 MPV (7.4 - 10.4 FL) 9.2 Gran % (42.2 - 75.2 %) 87.6 H Lymphocytes % (20.5 - 51.1 %) 6.3 L Monocytes % (1.7 - 9.3 %) 4.3 Eosinophils % (0 - 5 %) 1.7 Basophils % (0.0 - 2.0 %) 0.1 Absolute Granulocytes (1.4 - 6.5 /CUMM) 7.6 H Absolute Lymphocytes (1.2 - 3.4 /CUMM) 0.5 L Absolute Monocytes (0.10 - 0.60 /CUMM) 0.4 Absolute Eosinophils (0.0 - 0.7 /CUMM) 0.1 Absolute Basophils (0.0 - 0.2 /CUMM) 0 Platelet Estimate (ADEQUATE) VERIFIED BY SMEAR Polychromasia 1+ PUBS MCHC (33.0 - 37.0 G/DL) 32.8 L 07/20 1532 Urines Urine Color (YEL,AMB,STR) YEL Urine Clarity (CLEAR) CLEAR Urine pH (5.0 - 8.0) 7.5 Ur Specific [place] (1.001 - 1.035) 1.020 Urine Protein (NEG,<30 MG/DL) >=300 H Urine Ketones (NEG) NEG Urine Nitrite (NEG) POS H Urine Bilirubin (NEG) NEG Urine Urobilinogen (0.1 - 1.0 EU/dl) 2.0 H Ur Leukocyte Esterase (NEG) NEG Ur Microscopic SEDIMENT EXAMINED Urine RBC (0 - 5 /HPF) 5-10 H Urine WBC (0 - 2 /HPF) 15-25 H Ur Epithelial Cells (NONE,FEW) FEW Urine Bacteria (NEG/NONE) PACKD H Urine Hemoglobin (NEG) MOD H Urine Glucose (N MG/DL) NEG Last 24 Hours of Dany Results: Blood cultures July 20 negative Assessment/Plan Impression: Right leg cellulitis superimposed on chronic venous stasis ulcers of the right lower extremity, with temperatures and white blood cell count normal on Cefazolin Day 1 of treatment. Her intertriginous rash in the groin is consistent with Ashli and can be treated with topical therapy. Suggestion: 1. Elevation of the right leg 2. Nystatin cream/powder to the affected intertriginous areas 3. Continue Cefazolin
[2016-07-21 22:52] VITALS: BP 120/76
[2016-07-22 06:30] VITALS: BP 146/74
--- NOTE | 2016-07-22 08:16 | NUR ---
PT'S 0730 GLUCOSE LEVEL 59, GIVEN CRACKERS AND JUICE, BREAKFAST TRAY ARRIVING SHORTLY ACCORDING TO DIETARY. RECHECK 96. PT ASYMPTOMATIC. WILL CONTINUE TO MONITOR
--- NOTE | 2016-07-22 08:24 | PN- Housestaff ---
KRISTOPHER FROST,MONIQUE 07/22/16 0823: Subjective Follow-up For: rle cellulitis Subjective: pt currently on cefazolin, reports no improvement in the color of her right lower extremity. inr 3.11 this am, would hold coumadin today. pain well controlled on current regimen, was requesting ativan for anxiety. alps discontinued as she has ulcers on her lower extremities. Review of Systems Constitutional: Reports: see HPI. Objective Last 24 Hrs of Vital Signs/I&O Vital Signs Date Time Temp Pulse Resp B/P B/P Pulse O2 O2 Flow FiO2 Mean Ox Delivery Rate 07/22 1124 82 128/78 07/22 0630 99.2 91 20 146/74 93 Room Air 07/21 2252 99.4 90 20 120/76 94 Room Air 07/21 1400 98.4 72 18 138/74 96 Room Air Intake & Output 07/22 1600 07/22 0800 07/22 0000 Intake Total 1000 500 Output Total 500 Balance 500 500 Intake, IV 800 400 Intake, Oral 200 100 Number 0 Bowel Movements Output, Urine 500 Physical Exam General Appearance: Alert, Oriented X3, Cooperative Cardiovascular: Regular Rate, Normal S1, Normal S2 Lungs: mild wheezes heard Abdomen: Normal Bowel Sounds, Soft, No Tenderness Neurological: Normal Speech Extremities: marked area still very erythematous Current Medications: Current Medications Sig/Luz Maria Start time Last Medication Dose Route Stop Time Status Admin Acetaminophen 325 MG Q6P PRN 07/20 1715 DC 07/20 PO 1717 Cefazolin Sodium 2 GM Q8 07/21 0600 AC 07/22 N/A 1 UNIT IV 0605 Diltiazem HCl 120 MG DAILY 07/20 1532 AC 07/22 PO 1124 Insulin Aspart 0 TIDAC 07/20 1700 AC 07/20 SC 1813 Levothyroxine Sodium 0.175 MG DAILY AC 07/20 1532 AC 07/22 PO 0605 Lorazepam 0.5 MG BID PRN 07/22 1000 AC 07/22 PO 07/29 0959 1124 Metoprolol Succinate 100 MG DAILY 07/20 1532 AC 07/22 PO 1124 Nystatin 1 MOR TID 07/21 1600 AC 07/22 TOP 1124 Nystatin 1 MOR TID 07/21 1600 AC 07/22 TOP 1124 Omeprazole 40 MG DAILY AC 07/20 1533 AC 07/22 PO 0605 Oxycodone/ 2 TAB Q4-PRN PRN 07/21 1400 AC 07/22 Acetaminophen PO 1124 Oxycodone/ 1 TAB Q4-PRN PRN 07/20 2045 DC 07/21 Acetaminophen PO 1135 Pravastatin Sodium 20 MG QPM 07/20 2200 AC 07/21 PO 2121 Sodium Chloride 1,000 ML Q13H 07/20 1530 AC 07/22 IV 0457 Warfarin Sodium 5 MG COUMADIN 1700 ONE 07/21 1700 DC 07/21 PO 07/21 1701 1755 Last 24 Hrs of Lab/Dany Results Last 24 Hrs of Labs/Mics: Laboratory Tests 07/22/16 0710: Anion Gap 11, Estimated GFR > 60, BUN/Creatinine Ratio 16.7, PT 32.3 H, INR 3.11 H Assessment/Plan Assessment: This is a 70 YO lady w/ 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 On admission Max temp 100.2, VS otherwise stable. RLE erythema starting from ankle up to her thigh(area marked), warm and tender to touch, ulcers noted on anterior tibial aspect of RLE. Chronic venous stasis changes noted on both LEs. Labs significant for bandemia(13), elevated lactic acid to 2.9. elevated creatinine to 1.1. INR 3.39. Assessment: -Sepsis 2/2 RLE cellulitis -DVT on warfarin w/supratherapeutic INR -H/o Chronic LE static ulcers -Hyperlipidemia: chronic/stable -HTN: chronic/stable -Elevated creatinine Plan: * INR 3.11, hold coumadin today * c/w IV cefazolin * Follow ID recs * Cr improved to 0.9 * resume lasix * c/w KILN PULLER metoprolol, diltiazem, levothyroxine, statins, PPIs * Wound care MX * Continue with accucheks and Ins SS while admitted. * DVT PPX : Pt is on warfarin * Pt is full code. Problem List: 1. Cellulitis of right leg Pain Ratin Pain Location: rle Pain Goal: Pain 4 or less Pain Plan: mild pp Tomorrow's Labs & Rationales: cbc for dropping h/h inr for coumadin dosing DVT/Prophylaxis: pharmacological SOLANKY MD,[facility] 07/22/16 1054: Attending MD Review Statement Attending Statement Attending MD Statement: examined this patient, discuss w/resident/PA/SURGICAL FIRST ASSISTANT, agreed w/resident/PA/SURGICAL FIRST ASSISTANT, discussed with family, reviewed EMR data (avail), discussed with nursing, discussed with case mgmt, reviewed images, amended to note Attending Assessment/Plan: Patient resting comfortably in bed. Her pain is better as compared to yesterday. Afebrile. White count within normal range. She is on 0.5 mg Xanax twice a day when necessary at home for her anxiety, which was not started in hospital. Recommendations 1. Continue cefazolin pending culture reports. Follow up ID recs 2. Ensure adequate pain control. 3. Bowel regimen to avoid constipation 4. Xanax has been restarted 5. Encourage leg elevation 6. We can restart her Lasix as her renal function is within normal limits, as Lasix will be reduce the pedal edema and help her lower extremity pain. 7. Recheck INR in am and dose Coumadin
[2016-07-22 08:25] LABS: PT 32.3 SEC (9.4-12.5)
[2016-07-22] MEDS ORDERED: LORAZEPAM0.5 M1 PO (09:44)
[2016-07-22 15:12] VITALS: BP 128/62
--- NOTE | 2016-07-22 16:00 | NUR ---
1530- EXPIRATORY WHEEZING NOTED BILATERALLY. PT STATES SHE HAS NO HISTORY OF ASTHMA OR COPD. PT STATES SHE HAS BEEN SOB WITH EXERTION. DR. SUMMERS NOTIFIED OF ABOVE. [facility] ORDERED.
[2016-07-22 22:45] VITALS: BP 144/70
[2016-07-23 06:30] VITALS: BP 138/76
--- NOTE | 2016-07-23 07:34 | PN- Housestaff ---
MARIA DEL CARMEN CUNHA 07/23/16 0734: Subjective Follow-up For: Right lower extremity cellulitis Complaints: pain scale (0-10) Subjective: Patient was seen and examined this morning. She is alert, awake and oriented to time place and person. No acute events monitored overnight. She does report worsening pain right lower leg. She feels that her pain, redness, swelling didn't subside since admission even after 3 days of IV antibiotics. She is getting IV cefazolin. Denied any fever, chills, difficulty breathing, chest pain. Vitals weRE stable. Saturating at 95% on room air. Review of Systems Constitutional: Denies: chills, fever. Objective Last 24 Hrs of Vital Signs/I&O Vital Signs Date Time Temp Pulse Resp B/P B/P Pulse O2 O2 Flow FiO2 Mean Ox Delivery Rate 07/23 1411 97.6 76 20 140/80 96 Room Air 07/23 1019 72 150/80 07/23 0630 98.1 83 20 138/76 95 Room Air 07/23 0000 Room Air 07/22 2245 98.0 81 20 144/70 94 Intake & Output 07/23 1600 07/23 0800 07/23 0000 Intake Total 500 510 460 Output Total 600 Balance -100 510 460 Intake, IV 150 100 Intake, Oral 500 360 360 Output, Urine 600 Physical Exam General Appearance: Alert, Oriented X3, Cooperative, No Acute Distress Skin: rle swollen, red, tender, warmth HEENT: Atraumatic, PERRLA Neck: Supple, No JVD Lymphatic: Cervical nl Cardiovascular: Normal S1, Normal S2 Lungs: Normal Air Movement Abdomen: Normal Bowel Sounds, Soft, No Tenderness Extremities: No Clubbing, No Cyanosis, pitting edema +2 Vascular: Normal Pulses, Pulses Symmetrical Current Medications: Current Medications Sig/Luz Maria Start time Last Medication Dose Route Stop Time Status Admin Cefazolin Sodium 2 GM Q8 07/21 0600 AC 07/23 N/A 1 UNIT IV 1330 Diltiazem HCl 120 MG DAILY 07/20 1532 AC 07/23 PO 1020 Docusate Sodium 100 MG DAILY 07/22 1345 AC 07/23 PO 1020 Furosemide 20 MG DAILY 07/23 1121 AC 07/23 PO 1330 Furosemide 40 MG DAILY 07/22 1337 DC PO Ibuprofen 400 MG Q8P PRN 07/23 1130 AC PO Ibuprofen 400 MG Q8 07/23 0959 DC 07/23 PO 1021 Insulin Aspart 0 TIDAC 07/20 1700 AC 07/22 SC 1304 Levothyroxine Sodium 0.175 MG DAILY AC 07/20 1532 AC 07/23 PO 0641 Lorazepam 0.5 MG BID PRN 07/22 1000 AC 07/23 PO 07/29 0959 1020 Metoprolol Succinate 100 MG DAILY 07/20 1532 AC 07/23 PO 1019 Nystatin 1 MOR TID 07/21 1600 AC 07/23 TOP 1021 Nystatin 1 MOR TID 07/21 1600 AC 07/23 TOP 1021 Omeprazole 40 MG DAILY AC 07/20 1533 AC 07/23 PO 0641 Oxycodone/ 2 TAB Q4-PRN PRN 07/21 1400 AC 07/23 Acetaminophen PO 1330 Patient Medication 1 ED .STK-MED ONE 07/23 1350 MO Teaching ED 07/23 1351 Polyethylene Glycol 17 GM DAILY 07/22 1345 AC 07/23 PO 1020 Pravastatin Sodium 20 MG QPM 07/20 2200 AC 07/22 PO 2225 Senna 187 MG AT BEDTIME 07/22 2200 AC 07/22 PO 2225 Last 24 Hrs of Lab/Dany Results Last 24 Hrs of Labs/Mics: Laboratory Tests 07/23/16 0725: PT 38.1 H, INR 3.68 H, CBC w Diff MAN DIFF ORDERED, RBC 4.36, MCV 88.8, MCH 28.8, RDW 14.4, MPV 8.5, Gran % 85.8 H, Lymphocytes % 7.2 L, Monocytes % 5.2, Eosinophils % 1.8, Basophils % 0 L, Absolute Granulocytes 7.5 H, Absolute Lymphocytes 0.6 L, Absolute Monocytes 0.5, Absolute Eosinophils 0.2, Absolute Basophils 0, Platelet Estimate VERIFIED BY SMEAR, Polychromasia 1+, PUBS MCHC 32.4 L Assessment/Plan Assessment: This is a 70-year-old female with past medical history significant for pulmonary embolism on IVC filter, deep vein thrombosis on Coumadin, tachycardia on Cardizem, GERD, hyperlipidemia, hypertension, hypothyroidism, peripheral vascular disease with lower extremity ulcers following wound care, chronic venous stasis, lower extremity edema, history of cellulitis, anxiety, diabetes mellitus presented to [facility] emergency department from wound care center because of worsening right lower extremity redness, swelling associated with fever and chills for 2 days. Vitals on admission-afebrile, heart rate 110, respiratory rate 24, blood pressure 130/77, saturating at 95 on room air. Labs on admission wbc 9.8 with 13 bands, hemoglobin 14, hematocrit 45, platelets 160. INR 3.39 Bun 21 and creatinine 1.1. She received IV vancomycin and ceftaz in the emergency room and normal saline. Problem list 1. Sepsis secondary to right lower extremity cellulitis 2. Deep vein thrombosis and pulmonary embolism on Coumadin 3. Hypertension 4. Diabetes mellitus 5. GERD 6. Hyperlipidemia 7. Hypothyroidism 8. Chronic venous stasis 9. Lower extremity edema 1. possible Sepsis secondary to right lower extremity cellulitis Patient presented from wound care center with worsening right lower extremity pain, swelling, redness associated with fever and chills. She usually follows up get DrSoila 3 times a week. She was told to go to ER for possible cellulitis. On admission she was tachycardic with 13 bands. The source of sepsis might be right lower extremity. * Admitted to general medicine floor for further management of right lower extremity cellulitis * Monitor vitals closely every shift * Monitor for fever, leukocytosis, worsening redness, swelling, pain * She was given IV antibiotics ceftaz and vancomycin in the emergency room * Started cefazolin IV every 8 hours-83 * ID was consulted * Will follow ID recommendations * Follow-up CBCs in the morning * IV hydration with normal saline- stopped * Lactic acid elevated on admission 2.9,2.8,1.4,1.4 * Follow blood cultures 2. Bilateral lower extremity leg edema * Patient takes by mouth 40 mg Lasix at home. * Last echo 05/19/2014 which showed normal left ventricular ejection fraction, proximal thickening of the septum, mild left outflow obstruction, hyperdynamic left ventricular function with normal ventricular size and small cavity. Left ventricular wall thickness mildly increased. * Lasix was on hold for couple of days initially as she was septic and getting IV fluids * We restarted Lasix today, she takes 40 mg daily at home, however we started her on 20 mg today. 3. Pulmonary embolism * Status post IVC filter placement 4. Deep vein thrombosis * On Coumadin 4 mg daily at home * INR supratherapeutic today 3.68, will not give her Coumadin today * Recheck INR in the morning and dose Coumadin accordingly. 5. Supratherapeutic INR INR 3.39 on admission. She takes Coumadin 4 mg daily for DVT and pulmonary embolism. * Hold Coumadin today- INR 3.68 * Get INR in the morning * Dose Coumadin accordingly 6. Tachycardia She takes Cardizem at home * Continue Cardizem for now, heart rate 110 on admission with no new EKG changes 7. Heartburn/GERD Takes pantoprazole at home * Continue omeprazole for now 8. Hyperlipidemia Continue pravastatin 9. History of hypertension Continue home dose of metoprolol daily 10. Hypothyroidism Continue home dose of Synthyroid 175 g 11. Chronic venous stasis ulcers History of peripheral vascular disease with lower extremity ulcers Chronic venous stasis ulcers FOLLOWS Dr. Metzger at wound care center 3 times in a week * wound care consulted 12. Diabetes mellitus Patient is on metformin at home * We'll hold metformin in the hospital * Accu-Cheks before meals and at bedtimes * Insulin low-dose sliding scale DVT prophylaxis-Coumadin Regular diet Full code Pain pathway Problem List: 1. Cellulitis of right leg Pain Ratin Pain Location: right lower leg Pain Goal: Remain pain free Pain Plan: tylinol percocet motrin Tomorrow's Labs & Rationales: inr in in the setting of dosing Coumadin CBCs in the setting of infection NEDA WALTON 07/23/16 1150: Attending MD Review Statement Attending Statement Attending MD Statement: examined this patient, discuss w/resident/PA/PARTS COUNTERPERSON, agreed w/resident/PA/PARTS COUNTERPERSON, discussed with family, reviewed EMR data (avail), discussed with nursing, discussed with case mgmt, reviewed images, amended to note Attending Assessment/Plan: Impression/Plan: #Cellulitis/superficial thrombophlebitis. #Severe Lower Extremity Pain. #Bilateral Lower Extremity Stasis Ulcerations #Coagulopathy INR supratherapeutic #Essential HTN #Hyperlipidemia. #Hypothyroid. #GERD. #H/O DVT/PE #SIRS PLAN admit to inpatient medical services [place] wnl, stop hydration. Abx as per ID, blood culture negative so far Continue home meds- Metoprolol/Diltiazem/levothyroxine pain control , resume coumadin , monitor INR, has IVC filter consulted wound care/ID. cont supportive care gi/dvt prophylaxis full code. Plan of care d/sat family/patient bedside.
[2016-07-23 08:23] LABS: ABSOLUTE BASOPHIL COUNT 0 /CUMM (0.0-0.2); ABSOLUTE EOSINOPHIL COUNT 0.2 /CUMM (0.0-0.7); ABSOLUTE GRANULOCYTE CT 7.5 /CUMM (1.4-6.5); ABSOLUTE LYMPH COUNT 0.6 /CUMM (1.2-3.4); ABSOLUTE MONOCYTE COUNT 0.5 /CUMM (0.10-0.60); BASOPHIL % 0 % (0.0-2.0); EOSINOPHIL % 1.8 % (0-5); GRANULOCYTE % 85.8 % (42.2-75.2); HEMATOCRIT 38.7 % (37-47); MEAN CORPUSCULAR HGB 28.8 PG (27.0-31.0); MEAN CORPUSCULAR HGB CONC 32.4 G/DL (33.0-37.0); MEAN CORPUSCULAR VOLUME 88.8 FL (81.0-99.0); MEAN PLATELET VOLUME 8.5 FL (7.4-10.4); PLATELET COUNT 217 /CUMM (130-400); RBC DISTRIBUTION WIDTH 14.4 % (11.5-14.5); RED BLOOD CELL CT 4.36 /CUMM (4.20-5.40); WHITE BLOOD CELL COUNT 8.8 /CUMM (4.8-10.8)
[2016-07-23 08:32] LABS: PT 38.1 SEC (9.4-12.5)
--- NOTE | 2016-07-23 08:45 | Patient Discharge Instructions ---
Discharge Instructions General Discharge Information You were seen/treated for: RIGHT LOWER EXTREMITY CELLULITIS You had these procedures: NONE Watch for these problems: worsening redness, swelling, pain, warmth- right lower leg fever and chills Special Instructions: please f/u your pcp in 1-2 weeks please f/u at wound care center three times in a week please f/u dr. myers on saturday07/30/2016 at wound care center. Diet Recommended Diet: Heart Healthy Activity Full Activity/No Limits: Yes Acute Coronary Syndrome Inclusion Criteria At DC or during hospital stay patient has or had the following: ACS DIAGNOSIS No Discharge Core Measures Meds if any: Prescribed or Continued at Discharge Meds if any: NOT Prescribed or Continued at Discharge Congestive Heart Failure Inclusion Criteria At DC or during hospital stay patient has or had the following: CHF DIAGNOSIS No Discharge Core Measures Meds if any: Prescribed or Continued at Discharge Meds if any: NOT Prescribed or Continued at Discharge Cerebrovascular accident Inclusion Criteria At DC or during hospital stay patient has or had the following: CVA/TIA Diagnosis No Discharge Core Measures Meds if any: Prescribed or Continued at Discharge Meds if any: NOT Prescribed or Continued at Discharge Venous thromboembolism Inclusion Criteria VTE Diagnosis No VTE Type NONE VTE Confirmed by (Test) NONE Discharge Core Measures - Per Current guidelines, there needs to be overlap - treatment for the first 5 days of Warfarin therapy. - If discharged on Warfarin prior to 5 days of - overlap therapy, the patient will need to be - assessed for post discharge needs including - *Post discharge parental anticoagulation - *Warfarin and/or parental anticoagulation education - *Follow up date to check INR post discharge At least 5 days overlap therapy as Inpatient No Meds if any: Prescribed or Continued at Discharge Note: Overlap Therapy is Warfarin and Anticoagulant Meds if any: NOT Prescribed or Continued at Discharge
--- NOTE | 2016-07-23 10:41 | NUR ---
PATIENT REFUSING LASIX AT THIS TIME DR MÉNDEZ AWARE
--- NOTE | 2016-07-23 13:48 | PN- Student ---
Subjective Subjective: Student H&P: Source: patient CC: right lower leg swelling, redness, with fever and chills HPI: Mrs. Brown is a 70 yo white female who comes in today complaining of worsening right lower leg swelling, redness, and pain associated with fever and chills for 2 days duration. She describes the pain as sharp and nonradiating and covers a large area from her foot up to her iliac crest (redness follows same distribution). She reports multiple oozing wounds on her right lower leg. She was referred to us by Dr. Barrett as she sees him regularly at the wound care center (last visit was saturday). She was admitted to [facility] in the past (December-August 2015)for chronic non-healing ulcers and debridement of the ulcers. She was also treated for cellulitis with IV cephazolin. She denies fever, sore throat, congestion, chest pain, palpitations, difficulty breathing, cough, abdominal pain, N/V/D, or urinary or bowel disturbances. PMH: Patient is a morbidly obese woman who has history of pulmonary embolism (IVC filter placed), Rheumatoid arthritis, DVT (on coumadin), tachycardia (on cardizem), GERD, diverticulitis, hiatal hernia, hyperlipidemia, hypertension, hypothyroidism, peripheral vascular disease w/lower extremity ulcers for which she goes to wound care clinic. She also has history chronic venous stasis, lower extremity edema, cellulitis, anxiety, and DM. Allergies: morphine- vomiting 07/20/16 Surgical Hx: colon resection w/colostomy, colostomy reversal, IVC placement Social Hx: former smoker, denies alcohol and illicit drugs Family Hx: mother has diabetes mellitus ROS: constitutional-chills, fever, malaise weakness. no weight loss EENTM-no reported symptoms CV-peripheral edema. denies chest pain, orthopnea, palpitations, syncope Respiratory- denies cough, hemoptysis, orthopnea, dyspnea, sputum production GI-denies abdominal pain, bloating, constipation, melena, nausea, bloody stool -denies discharge, frequency, dysuria MSK-denies back pain, joint pain, extremity pain Skin-reports erythema and lesions Neuro/psych- denies any anxiety, ataxia, depression, dementia, emotional problems, headache, numbness, tingling, or tremors Objective Objective: Laboratory Tests 07/23/16 0725: PT 38.1 H, INR 3.68 H, CBC w Diff MAN DIFF ORDERED, RBC 4.36, MCV 88.8, MCH 28.8, RDW 14.4, MPV 8.5, Gran % 85.8 H, Lymphocytes % 7.2 L, Monocytes % 5.2, Eosinophils % 1.8, Basophils % 0 L, Absolute Granulocytes 7.5 H, Absolute Lymphocytes 0.6 L, Absolute Monocytes 0.5, Absolute Eosinophils 0.2, Absolute Basophils 0, Platelet Estimate VERIFIED BY SMEAR, Polychromasia 1+, PUBS MCHC 32.4 L Current Medications Sig/Luz Maria Start time Last Medication Dose Stop Time Status Admin Ibuprofen 400 MG Q8P PRN 07/23 1130 AC (Motrin) Furosemide 20 MG DAILY 07/23 1121 AC 07/23 (Lasix) 1330 Senna 187 MG AT BEDTIME 07/22 2200 AC 07/22 (Senokot) 2225 Docusate Sodium 100 MG DAILY 07/22 1345 AC 07/23 (Colace) 1020 Polyethylene Glycol 17 GM DAILY 07/22 1345 AC 07/23 (Miralax) 1020 Lorazepam 0.5 MG BID PRN 07/22 1000 AC 07/23 (Ativan) 07/29 0959 1020 Nystatin 1 MOR TID 07/21 1600 AC 07/23 (Mycostatin) 1021 Nystatin 1 MOR TID 07/21 1600 AC 07/23 (Mycostatin) 1021 Oxycodone/ 2 TAB Q4-PRN PRN 07/21 1400 AC 07/23 Acetaminophen 1330 (Percocet) Cefazolin Sodium 2 GM Q8 07/21 0600 AC 07/23 (Kefzol) 1330 N/A 1 UNIT (No Carrier) Pravastatin Sodium 20 MG QPM 07/20 2200 AC 07/22 (Pravachol) 2225 Insulin Aspart 0 TIDAC 07/20 1700 AC 07/22 (NovoLOG) 1304 Omeprazole 40 MG DAILY AC 07/20 1533 AC 07/23 (Prilosec) 0641 Diltiazem HCl 120 MG DAILY 07/20 1532 AC 07/23 (Cardizem CD) 1020 Levothyroxine Sodium 0.175 MG DAILY AC 07/20 1532 AC 07/23 (Synthroid) 0641 Metoprolol Succinate 100 MG DAILY 07/20 1532 07/23 (Toprol Xl) 1019 ED Intake and Output 07/23 0000 07/22 1200 Intake Total 1810 1000 Output Total 450 500 Balance 1360 500 Intake, IV 800 800 Intake, Oral 1010 200 Number 0 Bowel Movements Output, Urine 450 500 Physical Exam: general- AAO x 3, cooperative, NAD HEENT- atraumatic, PERRLA, mucus membranes moist and pink Neck-supple, no JVD, no thyromegaly or lymphadenopathy CV- S1 and S2 appreciated, no murmurs or rubs heard, regular rate and rhythm, pulses present and normal symmetrically Lungs- equal chest rise bilaterally, vesicular breath sounds throughout, normal air movement Abd- bowel sounds present, soft and non-tender to palpation, no organomegaly Extremities- no clubbing or cyanosis noted, right lower leg swelling and erythema with oozing wounds Skin- no breakdown or redness Results Results: 07/20/16 2210: Lactic Acid 1.4 07/20/16 1543: Lactic Acid 2.8 H 07/20/16 1532: Urine Color YEL, Urine Clarity CLEAR, Urine pH 7.5, Ur Specific [place] 1.020, Urine Protein >=300 H, Urine Ketones NEG, Urine Nitrite POS H, Urine Bilirubin NEG, Urine Urobilinogen 2.0 H, Ur Leukocyte Esterase NEG, Ur Microscopic SEDIMENT EXAMINED, Urine RBC 5-10 H, Urine WBC 15-25 H, Ur Epithelial Cells FEW, Urine Bacteria PACKD H, Urine Hemoglobin MOD H, Urine Glucose NEG Assessment/Plan Assessment: Mrs. Brown is a 70 yo white female with PMH of PE (has IVC filter), DVT (on coumadin), tachycardia (on cardizem), GERD, Hyperlipidemia, HTN, Hypothyroidism, PVD w/lower extremity ulcers (going to wound care clinic), chronic venous stasis , lower extremity edema, hx of cellulitis, anxiety, and DM. She presented to [facility] from wound care center due to worsening right lower extremity redness ans swelling with associated pain, fever, and chills for 2 days. Presentation is consistent with severe cellulitis or possible thrombophlebitis. Vital Signs Date Time Temp Pulse Resp B/P B/P Pulse O2 O2 Flow FiO2 Mean Ox Delivery Rate 07/23 1411 97.6 76 20 140/80 96 Room Air 07/23 1019 72 150/80 07/23 0630 98.1 83 20 138/76 95 Room Air 07/23 0000 Room Air 07/22 2245 98.0 81 20 144/70 94 07/22 1512 97.8 66 20 128/62 93 Plan: Plan is to treat with IV vancomycin and ceftaz following blood cultures due to high suspicion of cellulitis. As of now there are no signs of systemic infection , this is supported by the vitals and Labs. Problem List: 1. Cellulitis- treat with IV vancomycin and ceftaz until cultures return - monitor vitals and labs forfever and signs of systemic or worsening infection - consult Infectious disease and follow recommendations - Hydrate with normal saline and follow lactic acid levels (2.9 on admission) 2. Thrombophlebitis- monitor patients status on antibiotic treatment. if no change consider steroid therapy 3. bilateral lower extremity edema- patient takes lasix 40mg daily PO at home - will hold lasix for now due to infection and she is on IV fluids - Last echo 05/19/2014, normal LVEF, proximal thickening of septum, mild left outflow obstruction, hyperdynamic left ventricular function with normal size and small cavity. LV wall thickness mildly increased. 4. Pulmonary Edema- status post IVC filter placement 5. DVT- On coumadin 4mg daily 6. Supratherapeutic INR- 3.39 on admission. didnt take coumadin today. hold until tomorrow and follow INR for dosing. Target 3-4 7. Tachycardia- continue cardizem therapy 8. GERD- takes pantoprazole at home. will be on omeprazole while admitted 9.Hyperlipidemia- continue pravastatin 10. Hypertension- continue metoprolol 11. Hypothyroidism- continue synthroid 175 microgram 12. Chronic venous stasis ulcers- follows Dr. Metzger 3 times per week at wound care center - wound care consult 13. Diabetes Mellitus- patient on metformin at home - hold metformin for now - accu-check prior to meals and at bedtime with insulin on sliding scale DVT prophylaxis- coumadin Diet- regular Code status- Full Pain pathway until tomorrow and follow INR for dosing. Target 3-4 7. Tachycardia- continue cardizem therapy 8. GERD- takes pantoprazole at home. will be on omeprazole while admitted 9.Hyperlipidemia- continue pravastatin 10. Hypertension- continue metoprolol 11. Hypothyroidism- continue synthroid 175 microgram 12. Chronic venous stasis ulcers- follows Dr. Metzger 3 times per week at wound care center - wound care consult 13. Diabetes Mellitus- patient on metformin at home - hold metformin for now - accu-check prior to meals and at bedtime with insulin on sliding scale DVT prophylaxis- coumadin Diet- regular Code status- Full Pain pathway
[2016-07-23 14:11] VITALS: BP 140/80
--- NOTE | 2016-07-23 15:11 | PN- Infect Dx ---
Subjective Subjective: Afebrile. She notes persistent discomfort, particularly in the right thigh. Objective Last 24 Hrs of Vital Signs/I&O Vital Signs Date Time Temp Pulse Resp B/P B/P Pulse O2 O2 Flow FiO2 Mean Ox Delivery Rate 07/23 1411 97.6 76 20 140/80 96 Room Air 07/23 1019 72 150/80 07/23 0630 98.1 83 20 138/76 95 Room Air 07/23 0000 Room Air 07/22 2245 98.0 81 20 144/70 94 07/22 1512 97.8 66 20 128/62 93 Intake & Output 07/23 1600 07/23 0800 07/23 0000 Intake Total 500 510 460 Output Total 600 Balance -100 510 460 Intake, IV 150 100 Intake, Oral 500 360 360 Output, Urine 600 Physical Exam Other Physical Findings: She appears comfortable in no acute distress Extremities decreasing erythema of the right leg, with some desquamation noted, rodding machine tender to palpation Results Last 24 Hours of Lab Results: Laboratory Tests 07/23 0725 Coagulation PT (9.4 - 12.5 SEC) 38.1 H INR (0.90 - 1.19) 3.68 H Hematology CBC w Diff MAN DIFF ORDERED WBC (4.8 - 10.8 /CUMM) 8.8 RBC (4.20 - 5.40 /CUMM) 4.36 Hgb (12.0 - 16.0 G/DL) 12.5 Hct (37 - 47 %) 38.7 MCV (81.0 - 99.0 FL) 88.8 MCH (27.0 - 31.0 PG) 28.8 RDW (11.5 - 14.5 %) 14.4 Plt Count (130 - 400 /CUMM) 217 MPV (7.4 - 10.4 FL) 8.5 Gran % (42.2 - 75.2 %) 85.8 H Lymphocytes % (20.5 - 51.1 %) 7.2 L Monocytes % (1.7 - 9.3 %) 5.2 Eosinophils % (0 - 5 %) 1.8 Basophils % (0.0 - 2.0 %) 0 L Absolute Granulocytes (1.4 - 6.5 /CUMM) 7.5 H Absolute Lymphocytes (1.2 - 3.4 /CUMM) 0.6 L Absolute Monocytes (0.10 - 0.60 /CUMM) 0.5 Absolute Eosinophils (0.0 - 0.7 /CUMM) 0.2 Absolute Basophils (0.0 - 0.2 /CUMM) 0 Platelet Estimate (ADEQUATE) VERIFIED BY SMEAR Polychromasia 1+ PUBS MCHC (33.0 - 37.0 G/DL) 32.4 L Last 24 Hours of Dany Results: Blood cultures July 20 negative Assessment/Plan Impression: Overall improved on Cefazolin now Day 3 of treatment for right leg cellulitis superimposed on chronic venous stasis ulcers of the right lower extremity, with temperatures and white blood cell count remaining normal. Her candidal rash in the intertriginous areas of the groin is improving on topical antifungal therapy. Suggestion: 1. Elevation of the right leg 2. Continue Nystatin cream/powder to the affected intertriginous areas 3. Continue Cefazolin
--- NOTE | 2016-07-23 17:31 | PN- Wound Care ---
Subjective Subjective: Patient is 70-year-old woman with long-standing bilateral venous stasis ulcers present on admission. She became ill on Saturday with fever and chills over did not seek medical attention until Saturday when she was sent to the emergency room with evidence of extensive soft tissue skin infection. She initially had bandemia lactic acidosis and fever. These have improved and her erythema is fading. Objective Vital Signs and I&Os Vital Signs Result Date Time O2 Delivery Room Air 07/23 1600 Pulse Ox 96 07/23 1411 B/P 140/80 07/23 1411 Temp 97.6 07/23 1411 Pulse 76 07/23 1411 Resp 20 07/23 1411 O2 Flow Rate Room Air 07/21 1037 Intake & Output 07/23 0000 07/22 1600 07/22 0800 Intake Total 460 1350 1000 Output Total 450 500 Balance 460 900 500 Intake, IV 100 700 800 Intake, Oral 360 650 200 Number 0 Bowel Movements Output, Urine 450 500 Exam of her right lower extremity shows extensive erythema to be fading there continues to be edema. Multiple venous stasis ulcers are for the most part clean with scant drainage and evidence of healing in the setting of aggressive leg elevation and antibiotics. Impression/Plan Impression/Plan Impression/Plan: CC 10-year-old woman with long-standing venous stasis ulceration now complicated by probable strep cellulitis of the right leg. She is improving on antibiotics and leg elevation. At the time of discharge she will be again placed in compression dressing with aggressive elevation. Wound care now can be Xeroform daily cleansing
[2016-07-23 22:29] VITALS: BP 130/64
[2016-07-24 07:03] VITALS: BP 140/74
--- NOTE | 2016-07-24 07:42 | PN- Housestaff ---
MARIA DEL CARMEN CUNHA 07/24/16 0741: Subjective Follow-up For: Right lower extremity cellulitis Complaints: pain scale (0-10) Subjective: Patient was seen and examined this morning. She is alert, awake and oriented to time place and person. No acute events monitored overnight. She does report pain right lower leg-however improving since admission. She feels that her pain, redness, swelling subsided a little since admission after 4 days of IV antibiotics. She is getting IV cefazolin. Denied any fever, chills, difficulty breathing, chest pain. Vitals weRE stable. Saturating at 95% on room air. Review of Systems Constitutional: Denies: chills, diaphoresis, fever, malaise, weakness. Objective Last 24 Hrs of Vital Signs/I&O Vital Signs Date Time Temp Pulse Resp B/P B/P Pulse O2 O2 Flow FiO2 Mean Ox Delivery Rate 07/24 0703 98.1 71 20 140/74 94 Room Air 07/23 2229 98.4 66 20 130/64 92 Room Air 07/23 1600 Room Air 07/23 1411 97.6 76 20 140/80 96 Room Air 07/23 1019 72 150/80 Intake & Output 07/24 0800 07/24 0000 07/23 1600 Intake Total 360 460 500 Output Total 600 450 600 Balance -240 10 -100 Intake, IV 100 Intake, Oral 360 360 500 Number 1 Bowel Movements Output, Urine 600 450 600 Physical Exam General Appearance: Alert, Oriented X3, Cooperative, No Acute Distress Skin: redness, swelling, tenderness- rle HEENT: Atraumatic, PERRLA, EOMI, Mucous Membr. moist/pink Neck: Supple, No JVD Lymphatic: Cervical nl Cardiovascular: Normal S1, Normal S2 Lungs: Normal Air Movement Abdomen: Normal Bowel Sounds, Soft, No Tenderness Extremities: No Clubbing, No Cyanosis, bilateral + 2 pitting edema Vascular: Normal Pulses, Pulses Symmetrical Current Medications: Current Medications Sig/Luz Maria Start time Last Medication Dose Route Stop Time Status Admin Cefazolin Sodium 2 GM Q8 07/21 0600 AC 07/24 N/A 1 UNIT IV 0622 Diltiazem HCl 120 MG DAILY 07/20 1532 AC 07/24 PO 0753 Docusate Sodium 100 MG DAILY 07/22 1345 AC 07/24 PO 0753 Furosemide 20 MG DAILY 07/23 1121 AC 07/24 PO 0753 Furosemide 40 MG DAILY 07/22 1337 DC PO Ibuprofen 400 MG Q8P PRN 07/23 1130 AC PO Ibuprofen 400 MG Q8 07/23 0959 DC 07/23 PO 1021 Insulin Aspart 0 TIDAC 07/20 1700 AC 07/22 SC 1304 Levothyroxine Sodium 0.175 MG DAILY AC 07/20 1532 AC 07/24 PO 0622 Lorazepam 0.5 MG BID PRN 07/22 1000 AC 07/24 PO 07/29 0959 0753 Metoprolol Succinate 100 MG DAILY 07/20 1532 AC 07/24 PO 0753 Nystatin 1 MOR TID 07/21 1600 AC 07/24 TOP 0754 Nystatin 1 MOR TID 07/21 1600 AC 07/24 TOP 0754 Omeprazole 40 MG DAILY AC 07/20 1533 AC 07/24 PO 0622 Oxycodone/ 2 TAB Q4-PRN PRN 07/21 1400 AC 07/24 Acetaminophen PO 0307 Patient Medication 1 ED .STK-MED ONE 07/23 1350 MT Teaching ED 07/23 1351 Polyethylene Glycol 17 GM DAILY 07/22 1345 AC 07/24 PO 0753 Pravastatin Sodium 20 MG QPM 07/20 2200 AC 07/23 PO 2149 Senna 187 MG AT BEDTIME 07/22 220 07/23 PO 2149 Last 24 Hrs of Lab/Dany Results Last 24 Hrs of Labs/Mics: Laboratory Tests 07/24/16 0652: Sodium Pending, Potassium Pending, Chloride Pending, Carbon Dioxide Pending, Anion Gap Pending, BUN Pending, Creatinine Pending, BUN/Creatinine Ratio Pending , PT Pending, INR Pending, CBC w Diff Pending, WBC Pending, RBC Pending, Hgb Pending, Hct Pending, MCV Pending, MCH Pending, RDW Pending, Plt Count Pending, MPV Pending, PUBS MCHC Pending Assessment/Plan Assessment: This is a 70-year-old female with past medical history significant for pulmonary embolism on IVC filter, deep vein thrombosis on Coumadin, tachycardia on Cardizem, GERD, hyperlipidemia, hypertension, hypothyroidism, peripheral vascular disease with lower extremity ulcers following wound care, chronic venous stasis, lower extremity edema, history of cellulitis, anxiety, diabetes mellitus presented to [facility] emergency department from wound care center because of worsening right lower extremity redness, swelling associated with fever and chills for 2 days. Vitals on admission-afebrile, heart rate 110, respiratory rate 24, blood pressure 130/77, saturating at 95 on room air. Labs on admission wbc 9.8 with 13 bands, hemoglobin 14, hematocrit 45, platelets 160. INR 3.39 Bun 21 and creatinine 1.1. She received IV vancomycin and ceftaz in the emergency room and normal saline. Problem list 1. Sepsis secondary to right lower extremity cellulitis 2. Deep vein thrombosis and pulmonary embolism on Coumadin 3. Hypertension 4. Diabetes mellitus 5. GERD 6. Hyperlipidemia 7. Hypothyroidism 8. Chronic venous stasis 9. Lower extremity edema 1. possible Sepsis secondary to right lower extremity cellulitis Patient presented from wound care center with worsening right lower extremity pain, swelling, redness associated with fever and chills. She usually follows up get 3 times a week. She was told to go to ER for possible cellulitis. On admission she was tachycardic with 13 bands. The source of sepsis might be right lower extremity. * Admitted to general medicine floor for further management of right lower extremity cellulitis * Monitor vitals closely every shift * Monitor for fever, leukocytosis, worsening redness, swelling, pain * She was given IV antibiotics ceftaz and vancomycin in the emergency room * Started cefazolin IV every 8 hours- DAY4 * ID was consulted * Will follow ID recommendations * Follow-up CBCs in the morning * IV hydration with normal saline- stopped * Lactic acid elevated on admission 2.9,2.8,1.4,1.4 * Follow blood cultures- negative so far 2. Bilateral lower extremity leg edema * Patient takes by mouth 40 mg Lasix at home. * Last echo 05/19/2014 which showed normal left ventricular ejection fraction, proximal thickening of the septum, mild left outflow obstruction, hyperdynamic left ventricular function with normal ventricular size and small cavity. Left ventricular wall thickness mildly increased. * Lasix was on hold for couple of days initially as she was septic and getting IV fluids * restarted Lasix , she takes 40 mg daily at home, however started her on 20 mg today. 3. Pulmonary embolism * Status post IVC filter placement 4. Deep vein thrombosis * On Coumadin 4 mg daily at home 5. Supratherapeutic INR INR 3.39 on admission. She takes Coumadin 4 mg daily for DVT and pulmonary embolism. * INR 2.31 today. will dose coumadin * Get INR in the morning * Dose Coumadin accordingly 6. Tachycardia She takes Cardizem at home * Continue Cardizem for now, heart rate 110 on admission with no new EKG changes 7. Heartburn/GERD Takes pantoprazole at home * Continue omeprazole for now 8. Hyperlipidemia Continue pravastatin 9. History of hypertension Continue home dose of metoprolol daily 10. Hypothyroidism Continue home dose of Synthyroid 175 g 11. Chronic venous stasis ulcers History of peripheral vascular disease with lower extremity ulcers Chronic venous stasis ulcers FOLLOWS Dr. Metzger at wound care center 3 times in a week * wound care consulted * She is improving on antibiotics and leg elevation. * At the time of discharge she will be again placed in compression dressing with aggressive elevation. * Wound care now with Xeroform daily cleansing 12. Diabetes mellitus Patient is on metformin at home * We'll hold metformin in the hospital * Accu-Cheks before meals and at bedtimes * Insulin low-dose sliding scale DVT prophylaxis-Coumadin Regular diet Full code Pain pathway Problem List: 1. Cellulitis of right leg Pain Ratin Pain Location: right lower leg Pain Goal: Remain pain free Pain Plan: tylinol motrin percocet Tomorrow's Labs & Rationales: inr NEDA WALTON 07/24/16 1035: Attending MD Review Statement Attending Statement Attending MD Statement: examined this patient, discuss w/resident/PA/ALFALFA DEHYDRATOR OPERATOR, agreed w/resident/PA/ALFALFA DEHYDRATOR OPERATOR, discussed with family, reviewed EMR data (avail), discussed with nursing, discussed with case mgmt, reviewed images, amended to note Attending Assessment/Plan: Impression/Plan: #Cellulitis #Severe Lower Extremity Pain. #Bilateral Lower Extremity Stasis Ulcerations #Coagulopathy INR supratherapeutic #Essential HTN #Hyperlipidemia. #Hypothyroid. #GERD. #H/O DVT/PE #SIRS #superficial thrombophlebitis. PLAN admit to inpatient medical services Abx as per ID, blood culture negative so far Continue home meds- Metoprolol/Diltiazem/levothyroxine pain control , resumed coumadin , monitor INR, has IVC filter f/u wound care/ID. cont supportive care gi/dvt prophylaxis full code. declining PT services, can walk with walker. Plan of care d/sat patient bedside. case management consult, anticpate d/c in next 24-48hrs. case management consult, anticpate d/c in next 24-48hrs.
--- NOTE | 2016-07-24 08:36 | PN- Wound Care ---
Subjective Subjective: Patient is feeling better though there is significant persistent erythema with her legs dependent. She remains afebrile. She is extremely resistant to consideration of short-term rehabilitation for continued elevation. Objective Vital Signs and I&Os Vital Signs Result Date Time B/P 140/74 07/24 0753 Pulse 71 07/24 0753 Pulse Ox 94 07/24 0703 O2 Delivery Room Air 07/24 0703 Temp 98.1 07/24 0703 Resp 20 07/24 0703 O2 Flow Rate Room Air 07/21 1037 Intake & Output 07/24 0000 07/23 1600 07/23 0800 Intake Total 460 500 510 Output Total 450 600 Balance 10 -100 510 Intake, IV 100 150 Intake, Oral 360 500 360 Number 1 Bowel Movements Output, Urine 450 600 There is significant persistent erythema extending to the upper thigh bilateral lower extremity venous stasis ulcers remained clean there is no undermining sinus tracking or exposed bone Impression/Plan Impression/Plan Impression/Plan: CC 10-year-old woman with long-standing venous stasis ulceration now complicated by probable strep cellulitis of the right leg. She is improving on antibiotics and leg elevation. At the time of discharge she will be again placed in compression dressing with aggressive elevation. Wound care now can be Xeroform daily cleansing. I did discuss the need for maximal and continuous leg elevation given persistent thigh edema. It is unclear she will be able to do this at home though at this point is refusing short-term rehabilitation
[2016-07-24 08:47] LABS: PT 24.1 SEC (9.4-12.5)
[2016-07-24 09:03] LABS: ABSOLUTE BASOPHIL COUNT 0 /CUMM (0.0-0.2); ABSOLUTE EOSINOPHIL COUNT 0.2 /CUMM (0.0-0.7); ABSOLUTE GRANULOCYTE CT 7.5 /CUMM (1.4-6.5); ABSOLUTE LYMPH COUNT 0.6 /CUMM (1.2-3.4); ABSOLUTE MONOCYTE COUNT 0.4 /CUMM (0.10-0.60); BASOPHIL % 0.3 % (0.0-2.0); EOSINOPHIL % 2.6 % (0-5); GRANULOCYTE % 85.3 % (42.2-75.2); HEMATOCRIT 38.2 % (37-47); MEAN CORPUSCULAR HGB 29.3 PG (27.0-31.0); MEAN CORPUSCULAR HGB CONC 33.2 G/DL (33.0-37.0); MEAN CORPUSCULAR VOLUME 88.2 FL (81.0-99.0); MEAN PLATELET VOLUME 8.7 FL (7.4-10.4); PLATELET COUNT 267 /CUMM (130-400); RBC DISTRIBUTION WIDTH 14.2 % (11.5-14.5); RED BLOOD CELL CT 4.33 /CUMM (4.20-5.40); WHITE BLOOD CELL COUNT 8.8 /CUMM (4.8-10.8)
--- NOTE | 2016-07-24 09:27 | NUR ---
WOUND CARE: LATE ENTRY 07/23/16 2 PM - PT SEEN FOR F/U FROM [facility] APPOINTMENTS - PT ADMITTED FOR CELLULITIS RIGHT LEG - PT OBSERVED IN BED WITH LEGS ELEVATED - LEFT LEG HEALING WELL - FULL THICNKNESS WOUNDS PERSISTS 1 X 2 CM AND 2 X 1 CM RED FILL SMALL AMOUNT BLOODY DRNG - NO EVIDENCE OF INFECTION - RIGHT LEG FULL THICNKESS WOUNDS HEALING WELL AND SIGNIFICANTLY IMPROVED SINCE PRIOR ASSESSMENT 2 X 3 CM, 3 X 2 CM, AND 2.8 X 2.1 CM THIN BIOFILM OF SLOUGH EASILY REMOVED WITH GENTLY CLEANSING - SM AMOUNT SANG DRNG - NO INDURATION OR HYPERGRANLUATION NOTED - CLEANSED WITH NS FB XEROFORM AND DPD DIRECTED - ELEVATION ENCOURAGED - MD MADE AWARE OF WOUND STATUS RECOMMENDATION: CONT DAILY WOUND CARE XEROFORM AND DPD AND STRICT ELEVATION FOR EDEMA CONTROL
--- NOTE | 2016-07-24 10:51 | Discharge Summary ---
Visit Information Visit Dates Admission Date: 07/20/16 Discharge Date: 07/25/16 Hospital Course Course Attending Physician: NEDA WALTON MD Primary Care Physician: SATHISH LAMB MD Other Care Providers: dr. olman myers Consulting Request: Consulting Specialty: Infectious Disease Hospital Course: This is a 70-year-old female with past medical history significant for pulmonary embolism on IVC filter, deep vein thrombosis on Coumadin, tachycardia on Cardizem, GERD, hyperlipidemia, hypertension, hypothyroidism, peripheral vascular disease with lower extremity ulcers following wound care, chronic venous stasis, lower extremity edema, history of cellulitis, anxiety, diabetes mellitus presented to [facility] emergency department from wound care center because of worsening right lower extremity redness, swelling associated with fever and chills for 2 days. Vitals on admission-afebrile, heart rate 110, respiratory rate 24, blood pressure 130/77, saturating at 95 on room air. Labs on admission wbc 9.8 with 13 bands, hemoglobin 14, hematocrit 45, platelets 160. INR 3.39 Bun 21 and creatinine 1.1. She received IV vancomycin and ceftaz in the emergency room and normal saline. Problem list 1. Sepsis secondary to right lower extremity cellulitis 2. Deep vein thrombosis and pulmonary embolism on Coumadin 3. Hypertension 4. Diabetes mellitus 5. GERD 6. Hyperlipidemia 7. Hypothyroidism 8. Chronic venous stasis 9. Lower extremity edema 1. possible Sepsis secondary to right lower extremity cellulitis Patient presented from wound care center with worsening right lower extremity pain, swelling, redness associated with fever and chills. She usually follows up Dr. reyes 3 times a week. She was told to go to ER for possible cellulitis. On admission she was tachycardic with 13 bands. The source of sepsis might be right lower extremity. She was Admitted to general medicine floor for further management of right lower extremity cellulitis. Monitored vitals closely every shift. Monitored for fever, leukocytosis, worsening redness, swelling, pain. Infectious disease doctor on board. She was given IV antibiotics ceftaz and vancomycin in the emergency room and was Started on cefazolin IV every 8 hours. she received IV antibiotics for 5 days in the hospital and was discharged on oral keflex 500 mg every 6 hours for 5 more days. She remained afebrile with a normal WBC count and blood cultures were negative. 2. Bilateral lower extremity leg edema Patient usually takes by mouth 40 mg Lasix at home. Last echo 05/19/2014 which showed normal left ventricular ejection fraction, proximal thickening of the septum, mild left outflow obstruction, hyperdynamic left ventricular function with normal ventricular size and small cavity. Left ventricular wall thickness mildly increased. Lasix was on hold for couple of days initially in the hospital as she was septic and getting IV fluids. We restarted Lasix and started her on 20 mg today. She was discharged on her home dose of 40 mg. 3. Pulmonary embolism Status post IVC filter placement 4. Deep vein thrombosis On Coumadin 4 mg daily at home 5. Supratherapeutic INR INR 3.39 on admission. 6. Tachycardia She takes Cardizem at home Continued Cardizem, heart rate 110 on admission with no new EKG changes 7. Heartburn/GERD Takes pantoprazole at home Continued omeprazole in the hospital. 8. Hyperlipidemia Continued pravastatin. 9. History of hypertension Continued home dose of metoprolol daily 10. Hypothyroidism Continued home dose of Synthyroid 175 g 11. Chronic venous stasis ulcers History of peripheral vascular disease with lower extremity ulcers. she FOLLOWS Dr. Myers at wound care center 3 times in a week. She has improved on antibiotics and leg elevation. At the time of discharge she was placed in compression dressing . 12. Diabetes mellitus Patient is on metformin at home Accu-Cheks before meals and at bedtimes Insulin low-dose sliding scale DVT prophylaxis-Coumadin Regular diet Full code Complications: none Allergies: Coded Allergies: morphine (VOMITING 07/20/16) Significant Procedures: none Disposition Summary Disposition Principal Diagnosis: Right lower extremity cellulitis Additional Diagnosis: None Discharge Disposition: home health services Discharge Instructions General Discharge Information Code Status: Full Code Patient's Diet: Heart healthy diet Patient's Activity: As tolerated Follow-Up Instructions/Appts: Please follow-up with your primary care doctor in 1-2 weeks Please follow-up Dr. Reyes at wound care center 3 times a week Medications at Discharge Discharge Medications: Continue taking these medications: Diltiazem HCl (Cardizem Cd) 120 MG CAP.ER.24H 1 Capsule ORAL DAILY Comments: Last Taken:07-25-16 Time:1040 Pravastatin Sodium (Pravastatin Sodium) 20 MG TABLET 1 Tablet ORAL Every night Comments: Last Taken: 07/24/16 Time: 2050 Warfarin Sodium (Coumadin) 5 MG TABLET 1 Tablet ORAL 5 PM Comments: Last Taken: 07-24-16 [id number] Levothyroxine Sodium (Synthroid) 175 MCG TABLET 1 Tablet ORAL DAILY BEFORE BREAKFAST Qty = 90 Comments: Last Taken: Time: 0700 Ferrous Fumarate (Ferretts) 325 MG (106 MG) TABLET 1 Tablet ORAL DAILY Comments: nOT GIVEN THIS ADMISSION Metoprolol Succinate (Metoprolol Succinate) 100 MG TAB.ER.24H 1 Tablet ORAL DAILY Qty = 90 Comments: Last Taken: 07/25/16 Time: 1000 Pantoprazole Sodium (Pantoprazole Sodium) 40 MG TABLET.DR 1 Tablet ORAL DAILY Qty = 90 Comments: NOT GIVEN THIS ADMIT Metformin HCl (Metformin HCl) 500 MG TABLET 1 Tablet ORAL TWICE DAILY Qty = 60 Comments: NOT GIVEN THIS ADMIT Oxycodone HCl/Acetaminophen (Percocet 7.5-325 MG Tablet) 7.5 MG-325 MG TABLET 1 Tablet ORAL THREE TIMES DAILY as needed for PAIN Qty = 120 Comments: Last Taken:07-25-16 Time:0645 Furosemide (Furosemide) 40 MG TABLET 1 Tablet ORAL DAILY Qty = 30 Comments: Last Taken:07-24-16 Time:2050 Lorazepam (Lorazepam) 0.5 MG TABLET 1 Tablet ORAL 2 x Daily as needed as needed for anxiety Qty = 60 Comments: Last Taken:07-25-16 Time:0645 Start taking the following new medications: Lactobac Cmb #3/Fos/Pantethine (Probiotic & Acidophilus Cap) 300MM-250 CAPSULE 1 Capsule ORAL TWICE DAILY Qty = 10 No Refills Comments: Last Taken:07-25-16 Time:1030 Nystatin (Nystatin) 100,000 UNIT/GRAM CREAM..G. 1 Application On the skin THREE TIMES DAILY as needed for FUNGAL RASH Qty = 1 No Refills Cephalexin (Keflex) 500 MG CAPSULE 1 Capsule ORAL EVERY SIX HOURS Qty = 20 No Refills Copies To: ADONIS FROST,SATHISH
--- NOTE | 2016-07-24 13:20 | PN- Infect Dx ---
Subjective Subjective: Afebrile. She feels improved today with decreased discomfort in the right leg Objective Last 24 Hrs of Vital Signs/I&O Vital Signs Date Time Temp Pulse Resp B/P B/P Pulse O2 O2 Flow FiO2 Mean Ox Delivery Rate 07/24 0753 71 140/74 07/24 0703 98.1 71 20 140/74 94 Room Air 07/23 2229 98.4 66 20 130/64 92 Room Air 07/23 1600 Room Air 07/23 1411 97.6 76 20 140/80 96 Room Air Intake & Output 07/24 1600 07/24 0800 07/24 0000 Intake Total 360 460 Output Total 600 450 Balance -240 10 Intake, IV 100 Intake, Oral 360 360 Number 1 Bowel Movements Output, Urine 600 450 Physical Exam Other Physical Findings: She appears comfortable in no acute distress Extremities decreased erythema of the right leg, with no tenderness on palpation Results Last 24 Hours of Lab Results: Laboratory Tests 07/24 0652 Chemistry Sodium (137 - 145 mmol/L) 136 L Potassium (3.5 - 5.1 mmol/L) 4.0 Chloride (98 - 107 mmol/L) 101 Carbon Dioxide (22 - 30 mmol/L) 28 Anion Gap (5 - 16) 8 BUN (7 - 17 mg/dL) 12 Creatinine (0.5 - 1.0 mg/dL) 0.9 Estimated GFR (>60 ml/min) > 60 BUN/Creatinine Ratio (7 - 25 %) 13.3 Coagulation PT (9.4 - 12.5 SEC) 24.1 H INR (0.90 - 1.19) 2.31 H Hematology CBC w Diff MAN DIFF ORDERED WBC (4.8 - 10.8 /CUMM) 8.8 RBC (4.20 - 5.40 /CUMM) 4.33 Hgb (12.0 - 16.0 G/DL) 12.7 Hct (37 - 47 %) 38.2 MCV (81.0 - 99.0 FL) 88.2 MCH (27.0 - 31.0 PG) 29.3 RDW (11.5 - 14.5 %) 14.2 Plt Count (130 - 400 /CUMM) 267 MPV (7.4 - 10.4 FL) 8.7 Gran % (42.2 - 75.2 %) 85.3 H Lymphocytes % (20.5 - 51.1 %) 7.1 L Monocytes % (1.7 - 9.3 %) 4.7 Eosinophils % (0 - 5 %) 2.6 Basophils % (0.0 - 2.0 %) 0.3 Absolute Granulocytes (1.4 - 6.5 /CUMM) 7.5 H Segmented Neutrophils (42.2 - 75.2 %) 72 Band Neutrophils (0.0 - 5.0 %) 13 H Absolute Lymphocytes (1.2 - 3.4 /CUMM) 0.6 L Lymphocytes (20.5 - 51.1 %) 5 L Monocytes (1.7 - 9.3 %) 6 Absolute Monocytes (0.10 - 0.60 /CUMM) 0.4 Eosinophils (0 - 5.0 %) 1 Absolute Eosinophils (0.0 - 0.7 /CUMM) 0.2 Absolute Basophils (0.0 - 0.2 /CUMM) 0 Metamyelocytes (0.0 - 1.0 %) 3 H Normocytic RBCs VERIFIED Normochromic RBCs VERIFIED PUBS MCHC (33.0 - 37.0 G/DL) 33.2 Last 24 Hours of Dany Results: Blood cultures July 20 negative Assessment/Plan Impression: Continues to improve on Cefazolin now Day 4 of treatment for right leg cellulitis superimposed on chronic venous stasis ulcers of the right lower extremity, with temperatures and white blood cell count remaining normal. Suggestion: 1. Continue elevation of the right leg 2. Continue Nystatin cream/powder to the affected intertriginous areas 3. Continue Cefazolin, but if continues to improve can change to Keflex 500 mg po every 6 hours to complete a 7-10 day course of antibiotics
[2016-07-24 14:29] VITALS: BP 132/56
[2016-07-24 22:23] VITALS: BP 158/76
[2016-07-25 06:30] VITALS: BP 134/70
--- NOTE | 2016-07-25 08:02 | PN- Housestaff ---
MARIA DEL CARMEN CUNHA 07/25/16 0802: Subjective Follow-up For: right lower extremity cellulitis Complaints: pain scale (0-10) Subjective: Patient was seen and examined this morning. She is alert, awake and oriented to time place and person. No acute events monitored overnight. She does report mild pain right lower leg-however improved since admission. She feels that her pain, redness, swelling subsided much since admission after 5 days of IV antibiotics. She is getting IV cefazolin. Denied any fever, chills, difficulty breathing, chest pain. Vitals weRE stable. Saturating at 95% on room air. Review of Systems Constitutional: Denies: chills, fever. Objective Last 24 Hrs of Vital Signs/I&O Vital Signs Date Time Temp Pulse Resp B/P B/P Pulse O2 O2 Flow FiO2 Mean Ox Delivery Rate 07/25 0630 98.8 75 20 134/70 95 Room Air 07/24 2223 99.2 76 20 158/76 94 07/24 1429 98.6 71 20 132/56 94 Intake & Output 07/25 1600 07/25 0800 07/25 0000 Intake Total 100 80 Output Total 200 Balance 100 -120 Intake, IV 80 Intake, Oral 100 Output, Urine 200 Patient 112.945 kg Weight Physical Exam General Appearance: Alert, Oriented X3, Cooperative, No Acute Distress Skin: No Rashes HEENT: Atraumatic, PERRLA, EOMI, Mucous Membr. moist/pink Neck: Supple, No JVD Lymphatic: Cervical nl Cardiovascular: Normal S1, Normal S2 Lungs: Normal Air Movement Abdomen: Normal Bowel Sounds, Soft, No Tenderness Extremities: No Clubbing, No Cyanosis, +1 pitting edema Vascular: Normal Pulses, Pulses Symmetrical Current Medications: Current Medications Sig/Luz Maria Start time Last Medication Dose Route Stop Time Status Admin Cefazolin Sodium 2 GM Q8 07/21 0600 AC 07/25 N/A 1 UNIT IV 0636 Diltiazem HCl 120 MG DAILY 07/20 1532 AC 07/24 PO 0753 Docusate Sodium 100 MG DAILY 07/22 1345 AC 07/24 PO 0753 Furosemide 20 MG DAILY 07/23 1121 AC 07/24 PO 0753 Ibuprofen 400 MG Q8P PRN 07/23 1130 AC PO Insulin Aspart 0 TIDAC 07/20 1700 AC 07/24 SC 1636 Lactobacillus 1 CAP BID 07/24 1436 AC 07/24 Acidophilus PO 2050 Levothyroxine Sodium 0.175 MG DAILY AC 07/20 1532 AC 07/25 PO 0635 Lorazepam 0.5 MG BID PRN 07/22 1000 AC 07/25 PO 07/29 0959 0646 Metoprolol Succinate 100 MG DAILY 07/20 1532 AC 07/24 PO 0753 Nystatin 1 MOR TID 07/21 1600 AC 07/24 TOP 2053 Nystatin 1 MOR TID 07/21 1600 AC 07/24 TOP 2053 Omeprazole 40 MG DAILY AC 07/20 1533 AC 07/25 PO 0635 Oxycodone/ 2 TAB Q4-PRN PRN 07/21 1400 AC 07/25 Acetaminophen PO 0646 Patient Medication 1 ED .STK-MED ONE 07/24 142 UT Teaching ED 07/24 142 Polyethylene Glycol 17 GM DAILY 07/22 1345 07/24 PO 0753 Pravastatin Sodium 20 MG QPM 07/20 2200 AC 07/24 PO 2050 Senna 187 MG AT BEDTIME 07/22 220 07/24 PO 2050 Warfarin Sodium 5 MG COUMADIN 1700 ONE 07/24 1700 UT 07/24 PO 07/24 1701 1627 Last 24 Hrs of Lab/Dany Results Last 24 Hrs of Labs/Mics: Laboratory Tests 07/25/16 0655: PT 24.9 H, INR 2.39 H, CBC w Diff Pending, WBC Pending, RBC Pending, Hgb Pending, Hct Pending, MCV Pending, MCH Pending, RDW Pending, Plt Count Pending, MPV Pending, Gran % Pending, Lymphocytes % Pending, Monocytes % Pending, Eosinophils % Pending, Basophils % Pending, Absolute Granulocytes Pending, Absolute Lymphocytes Pending, Absolute Monocytes Pending, Absolute Eosinophils Pending, Absolute Basophils Pending, PUBS MCHC Pending Assessment/Plan Assessment: This is a 70-year-old female with past medical history significant for pulmonary embolism on IVC filter, deep vein thrombosis on Coumadin, tachycardia on Cardizem, GERD, hyperlipidemia, hypertension, hypothyroidism, peripheral vascular disease with lower extremity ulcers following wound care, chronic venous stasis, lower extremity edema, history of cellulitis, anxiety, diabetes mellitus presented to [facility] emergency department from wound care center because of worsening right lower extremity redness, swelling associated with fever and chills for 2 days. Vitals on admission-afebrile, heart rate 110, respiratory rate 24, blood pressure 130/77, saturating at 95 on room air. Labs on admission wbc 9.8 with 13 bands, hemoglobin 14, hematocrit 45, platelets 160. INR 3.39 Bun 21 and creatinine 1.1. She received IV vancomycin and ceftaz in the emergency room and normal saline. Problem list 1. Sepsis secondary to right lower extremity cellulitis 2. Deep vein thrombosis and pulmonary embolism on Coumadin 3. Hypertension 4. Diabetes mellitus 5. GERD 6. Hyperlipidemia 7. Hypothyroidism 8. Chronic venous stasis 9. Lower extremity edema 1. possible Sepsis secondary to right lower extremity cellulitis Patient presented from wound care center with worsening right lower extremity pain, swelling, redness associated with fever and chills. She usually follows up get 3 times a week. She was told to go to ER for possible cellulitis. On admission she was tachycardic with 13 bands. The source of sepsis might be right lower extremity. * Admitted to general medicine floor for further management of right lower extremity cellulitis * Monitor vitals closely every shift * Monitor for fever, leukocytosis, worsening redness, swelling, pain * She was given IV antibiotics ceftaz and vancomycin in the emergency room * Started cefazolin IV every 8 hours- DAY5 * ID was consulted * Will follow ID recommendations * Follow-up CBCs in the morning- normal * IV hydration with normal saline- stopped * Lactic acid elevated on admission 2.9,2.8,1.4,1.4 * Follow blood cultures- negative so far * planning to discharge today with oral keflex 500mg q6 for 5more days 2. Bilateral lower extremity leg edema * Patient takes by mouth 40 mg Lasix at home. * Last echo 05/19/2014 which showed normal left ventricular ejection fraction, proximal thickening of the septum, mild left outflow obstruction, hyperdynamic left ventricular function with normal ventricular size and small cavity. Left ventricular wall thickness mildly increased. * Lasix was on hold for couple of days initially as she was septic and getting IV fluids * restarted Lasix , she takes 40 mg daily at home, however started her on 20 mg today. 3. Pulmonary embolism * Status post IVC filter placement 4. Deep vein thrombosis * On Coumadin 4 mg daily at home 5. Supratherapeutic INR INR 3.39 on admission. She takes Coumadin 4 mg daily for DVT and pulmonary embolism. * INR 2.31 today. will dose coumadin * Get INR in the morning * Dose Coumadin accordingly 6. Tachycardia She takes Cardizem at home * Continue Cardizem for now, heart rate 110 on admission with no new EKG changes 7. Heartburn/GERD Takes pantoprazole at home * Continue omeprazole for now 8. Hyperlipidemia Continue pravastatin 9. History of hypertension Continue home dose of metoprolol daily 10. Hypothyroidism Continue home dose of Synthyroid 175 g 11. Chronic venous stasis ulcers History of peripheral vascular disease with lower extremity ulcers Chronic venous stasis ulcers FOLLOWS Dr. Metzger at wound care center 3 times in a week * wound care consulted * She is improving on antibiotics and leg elevation. * At the time of discharge she will be again placed in compression dressing with aggressive elevation. * Wound care now with Xeroform daily cleansing 12. Diabetes mellitus Patient is on metformin at home * We'll hold metformin in the hospital * Accu-Cheks before meals and at bedtimes * Insulin low-dose sliding scale DVT prophylaxis-Coumadin Regular diet Full code Pain pathway Problem List: 1. Cellulitis of right leg Pain Ratin Pain Location: rle Pain Goal: Remain pain free Pain Plan: percocet Tomorrow's Labs & Rationales: none NEDA WALTON 07/25/16 1102: Attending MD Review Statement Attending Statement Attending MD Statement: examined this patient, discuss w/resident/PA/PASTE WORKER, agreed w/resident/PA/PASTE WORKER, discussed with family, reviewed EMR data (avail), discussed with nursing, discussed with case mgmt, reviewed images, amended to note Attending Assessment/Plan: #Cellulitis #Severe Lower Extremity Pain. #Bilateral Lower Extremity Stasis Ulcerations #Coagulopathy INR supratherapeutic #Essential HTN #Hyperlipidemia. #Hypothyroid. #GERD. #H/O DVT/PE #SIRS #superficial thrombophlebitis. PLAN admit to inpatient medical services Abx as per ID, blood culture negative so far Continue home meds- Metoprolol/Diltiazem/levothyroxine pain control , resumed coumadin , monitor INR, has IVC filter f/u wound care/ID. cont supportive care gi/dvt prophylaxis full code. declining PT services, can walk with walker. Plan of care d/wed patient bedside. case management consulted, needs ride at d/c, anticpate d/c today.
[2016-07-25 08:09] LABS: ABSOLUTE BASOPHIL COUNT 0 /CUMM (0.0-0.2); ABSOLUTE EOSINOPHIL COUNT 0.2 /CUMM (0.0-0.7); ABSOLUTE GRANULOCYTE CT 7.4 /CUMM (1.4-6.5); ABSOLUTE LYMPH COUNT 0.6 /CUMM (1.2-3.4); ABSOLUTE MONOCYTE COUNT 0.4 /CUMM (0.10-0.60); BASOPHIL % 0.1 % (0.0-2.0); EOSINOPHIL % 2.7 % (0-5); GRANULOCYTE % 86.2 % (42.2-75.2); HEMATOCRIT 38.9 % (37-47); MEAN CORPUSCULAR HGB 28.5 PG (27.0-31.0); MEAN CORPUSCULAR HGB CONC 32.5 G/DL (33.0-37.0); MEAN PLATELET VOLUME 8.4 FL (7.4-10.4); PLATELET COUNT 346 /CUMM (130-400); RBC DISTRIBUTION WIDTH 13.7 % (11.5-14.5); RED BLOOD CELL CT 4.42 /CUMM (4.20-5.40); WHITE BLOOD CELL COUNT 8.6 /CUMM (4.8-10.8)
--- NOTE | 2016-07-25 08:09 | PN- Wound Care ---
Subjective Subjective: Erythema has faded significantly. Lower extremity wounds are healing. Objective Vital Signs and I&Os Vital Signs Result Date Time Pulse Ox 95 07/25 0630 B/P 134/70 07/25 0630 O2 Delivery Room Air 07/25 0630 Temp 98.8 07/25 0630 Pulse 75 07/25 0630 Resp 20 07/25 0630 O2 Flow Rate Room Air 07/21 1037 Intake & Output 07/25 0000 07/24 1600 07/24 0800 Intake Total 80 840 360 Output Total 200 600 Balance -120 840 -240 Intake, IV 80 120 Intake, Oral 720 360 Output, Urine 200 600 Lower extremity wounds have decreased in size with bed rest elevation and wound care. Patient wishes to avoid compression therapy and is committed to bedrest at home. Visiting nurses should be arranged for wound care with follow-up in the wound care center on Saturday. Impression/Plan Impression/Plan Impression/Plan: CC 10-year-old woman with long-standing venous stasis ulceration now complicated by probable strep cellulitis of the right leg. She is improving on antibiotics and leg elevation. At the time of discharge she will be again placed in compression dressing with aggressive elevation. Wound care now can be Xeroform daily cleansing. I did discuss the need for maximal and continuous leg elevation given persistent thigh edema. It is unclear she will be able to do this at home though at this point is refusing short-term rehabilitation. Patient is accepting visiting nurse and should be seen in follow-up in wound care center on Saturday.
[2016-07-25 08:16] LABS: PT 24.9 SEC (9.4-12.5)
[2016-07-25] MEDS ORDERED: NYSTATIN15 G1 TOP (08:22)
[2016-07-25] MEDS ORDERED: PROBIOTIC & AC1 EACH PO (08:22)
[2016-07-25] MEDS ORDERED: KEFLEX500 M1 PO (08:22)
[2016-07-25 10:39] VITALS: BP 140/70
--- NOTE | 2016-07-25 11:14 | NUR ---
PT HAD REFUSED HER LASIX THIS AM D/T CONCERN OF HAVING TO VOID WITH PENDING DISCHARGE. PT REPORTS SHE WILL TAKE MED SOON SHE GETS HOME. DR. ALMA LANEDY NOTIFIED OF PT'S REFUSAL. WILL CONT TO MONITOR.
== END 2016-07-25 12:53 | disposition home health service (06) | DRG 603 ==
LOC: ERH 10:52 → ERHI 14:04 → 2NA 14:04 → ENRESERV 15:13 → ENTRNSPT 17:07 → EDTRNSPTTYP 17:15 → 2NA 17:18 → CMPTRNSPT 17:40 → ENPENDDIS 07-25 10:02 → 2NA 07-25 12:53
PROVIDERS: Emergency Medicine; Internal Medicine; Radiology Diagnostic Radiology; ADMIT Internal Medicine
DX: L03.115 Cellulitis of right lower limb (principal); L97.821 Non-pressure chronic ulcer of other part of left lower leg limited to breakdown of skin; L97.811 Non-pressure chronic ulcer of other part of right lower leg limited to breakdown of skin; E66.01 Morbid (severe) obesity due to excess calories; I80.00 Phlebitis and thrombophlebitis of superficial vessels of unspecified lower extremity; I10 Essential (primary) hypertension; Z68.39 Body mass index [BMI] 39.0-39.9, adult; Z86.718 Personal history of other venous thrombosis and embolism; Z79.01 Long term (current) use of anticoagulants; Z86.711 Personal history of pulmonary embolism; K21.9 Gastro-esophageal reflux disease without esophagitis; E78.5 Hyperlipidemia, unspecified; E03.9 Hypothyroidism, unspecified; K44.9 Diaphragmatic hernia without obstruction or gangrene; M06.9 Rheumatoid arthritis, unspecified; I87.8 Other specified disorders of veins; Z87.891 Personal history of nicotine dependence; E11.9 Type 2 diabetes mellitus without complications; Z79.84 Long term (current) use of oral hypoglycemic drugs
CPT/HCPCS: 2NAP; 36415; 81001; 82436; 87040; 93005; 93010; 96374; 96375; J0690; J0713; J3370; J7040; J7508